=== PATIENT | female | born 1940 | race Two or more races ===

== ENCOUNTER 2017-10-09 17:03 | Inpatient (IN) | payer MEDICARE, OTHER ==
[~2017-10-09] VITALS: Ht 152.4 cm; Wt 53.5 kg
--- NOTE | 2017-10-09 17:30 | NUR ---
[id number] FROM HOME: FAILURE TO THRIVE, UNABLE TO CARE FOR SELF, SOB. HX OF HYPOXIA. ON O2 VIA NC. PT AAOX3. SEEN BY MD FOR EVAL. SAFETY AND COMFORT MEASURES PROVIDED. WILL MONITOR.
--- NOTE | 2017-10-09 18:20 | NUR ---
UNABLE TO ESTABLISH IV ACCESS- CHARGE NURSE MADE AWARE.
[2017-10-09] MEDS ORDERED: IV NS 0.9% 1,000 ML BAG IV ONE (18:30)
[2017-10-09 18:36] LABS: BASOPHILS # (AUTO) 0.1 /CMM (0.0-0.2); BASOPHILS % (AUTO) 1.1 % (0.0-2.0); EOSINOPHILS # (AUTO) 0.1 /CMM (0.0-0.7); EOSINOPHILS % (AUTO) 0.7 % (0.0-6.0); HEMATOCRIT 49 % (33-45); HEMOGLOBIN 15.1 g/dL (11.5-14.8); LYMPHOCYTES # (AUTO) 1.1 /CMM (0.8-4.8); LYMPHOCYTES % (AUTO) 10.4 % (20.0-44.0); MEAN CORPUSCULAR HEMOGLOBIN 26 PG (26.0-33.0); MEAN CORPUSCULAR HGB CONC 31 g/dl (31.0-36.0); MEAN CORPUSCULAR VOLUME 85 fL (82-100); MONOCYTES # (AUTO) 0.9 /CMM (0.1-1.30); MONOCYTES % (AUTO) 8.7 % (2.0-12.0); NEUTROPHILS # (AUTO) 8.2 /CMM (1.8-8.9); NEUTROPHILS % (AUTO) 79.1 % (43.0-81.0); PLATELET COUNT (AUTO) 202 /CMM (150-450); RDW COEFFICIENT OF VARIATION 15.8 (11.5-15.0); RED BLOOD CELL COUNT(AUTO) 5.72 MIL/uL (4.0-5.2); WHITE BLOOD COUNT (AUTO) 10.4 K/uL (4.3-11.0)
[2017-10-09 18:47] LABS: CALCIUM, SERUM 9.3 mg/dL (8.5-10.1); CARBON DIOXIDE 18 mmol/L (21-32); CHLORIDE 102 mmol/L (98-107); CREATININE 1.2 mg/dL (0.6-1.3); GLUCOSE 69 mg/dL (74-106); POTASSIUM 4.7 mmol/L (3.5-5.1); SODIUM SERUM 136 mmol/L (136-145); UREA NITROGEN, BLOOD 28 mg/dL (7-18)
[2017-10-09 18:52] LABS: ALANINE AMINOTRANSFERASE 21 U/L (12-78); ALBUMIN 3.1 g/dL (3.4-5.0); ALKALINE PHOSPHATASE 86 U/L (46-116); ASPARTATE AMINOTRANSFERASE 38 U/L (15-37); BILIRUBIN,TOTAL 0.2 mg/dL (0.2-1.0); TOTAL PROTEIN, SERUM 8.2 g/dL (6.4-8.2)
--- NOTE | 2017-10-09 19:00 | NUR ---
URINE SAMPLE OBTAINED.
--- NOTE | 2017-10-09 19:10 | NUR ---
PT REFUSES BLOOD DRAW/ IV INSERTION. CHARGE NURSE MADE AWARE. MADE AWARE.
[2017-10-09 19:11] LABS: TROPONIN I < 0.017 ng/mL (0.00-0.056)
[2017-10-09 19:50] LABS: APPEARANCE,URINE Clear (CLEAR); BILIRUBIN,URINE SMALL (NEGATIVE); BLOOD, URINE Negative Ery/uL (NEGATIVE); COLOR,URINE Yellow (YELLOW); KETONES,URINE 80 (NEGATIVE); LEUKOCYTE ESTERASE ,URINE Negative (NEGATIVE); NITRITE, URINE Negative (NEGATIVE); PH,URINE 5.5 (5.0-8.0); PROTEIN,URINE 30 mg/dl (NEGATIVE); UGLUCOSE Negative (NEGATIVE); UROBILINOGEN,URINE 0.2 EU/dL (0.2)
[2017-10-09 19:54] LABS: BACTERIA,URINE Many /HPF (None Seen); RBC,URINE 0-2 /HPF (0-2); SQUAMOUS EPITHELIAL CELL,UR Few /HPF (None Seen); WBC,URINE 0-2 /HPF (0-3)
--- NOTE | 2017-10-09 20:48 | NUR ---
311-1 [facility] BED
--- NOTE | 2017-10-09 21:00 | NUR ---
2ND CALL TO DR. HARRELL
--- NOTE | 2017-10-09 21:05 | NUR ---
REPORT GIVEN TO AL MUSTAFA FOR 311-1
--- NOTE | 2017-10-09 21:15 | NUR ---
3RD CALL TO DR. HARRELL. SERVICE TO KEANU TORREZ.
[2017-10-09] MEDS ORDERED: OSELTAMIVIR PHOSPHATE 75 MG CAPSULE PO SCH (22:00)
[2017-10-09] MEDS ORDERED: OSELTAMIVIR PHOSPHATE 75 MG CAPSULE ONE (22:08)
--- NOTE | 2017-10-09 22:20 | NUR ---
RN NOTES RECEIVED PT. FROM ER WITH DX. OF GENERALIZED WEAKNESS, A/OX3, SR ON TELE MONITOR HR-88, NO IV ACCESS WAITING FOR MIDLINE INSERTION, ADMISSION INSTRUCTION WAS GIVEN, CALL LIGHT WITHIN REACH, SIDERAILSUPX2 CONTINUE TO MONITOR
[2017-10-10 00:19] LABS: INR 0.93 (0.87-1.13); PROTHROMBIN TIME 9.7 SECS (9.5-12.7)
[2017-10-10] MEDS ORDERED: ONDANSETRON HCL/PF 4 MG/2 ML VIAL IVP PRN (00:30)
[2017-10-10] MEDS ORDERED: hydrALAZINE HCL 10 MG TABLET PO PRN (00:30)
[2017-10-10] MEDS ORDERED: ACETAMINOPHEN 325 MG TABLET PO PRN (00:30)
[2017-10-10] MEDS ORDERED: Z GUARD REMEDY 2 OZ OINT TP PRN (00:30)
[2017-10-10] MEDS: methylPREDNISolone SOD SUCC 40 MG/ML VIAL IV SCH ×4 (00:30→18:15)
[2017-10-10] MEDS ORDERED: CEFTRIAXONE 1 G in IV D5W 50 ML IV SCH (00:30)
[2017-10-10] MEDS ORDERED: LEVOFLOXACIN 750 MG /D5W 150ML 750 MG in PREMIX 1 EA IV SCH (01:00)
[2017-10-10] MEDS ORDERED: LEVOFLOXACIN (750 MG) 750 MG TABLET PO SCH (01:00)
[2017-10-10] MEDS ORDERED: LEVOFLOXACIN (750 MG) 750 MG TABLET PO ONE (01:00)
[2017-10-10] MEDS ORDERED: predniSONE 20 MG TABLET PO SCH (01:00)
--- NOTE | 2017-10-10 01:00 | NUR ---
RN NOTES LEVAQUIN IV AND SOLU MEDROL 40 MG IV WAS NOT GIVEN.. PT DOESN'T HAVE IV ACCESS, ELSI GALVAN-MARTINA MADE AWARE... [place] GALVAN ORDER PO X1 INSTEAD WHILE WAITING FOR MIDLINE INSERTION TOMORROW
[2017-10-10] MEDS ORDERED: ACETYLCYSTEINE 10% SOLN 400 MG/4 ML VIAL ONE (01:04)
[2017-10-10] MEDS ORDERED: ALBUTEROL FS 2.5 MG/0.5 ML VIAL.NEB ONE (01:04)
[2017-10-10] MEDS ORDERED: IPRATROPIUM NEB FS 0.5 MG/2.5 ML AMPUL.NEB ONE (01:04)
[2017-10-10] MEDS ORDERED: LEVOFLOXACIN (750 MG) 750 MG TABLET ONE (01:07)
[2017-10-10] MEDS: IPRATROPIUM NEB FS 0.5 MG/2.5 ML AMPUL.NEB NEB SCH ×4 (01:07→19:30)
[2017-10-10] MEDS: ACETYLCYSTEINE 10% SOLN 400 MG/4 ML VIAL NEB SCH ×4 (01:07→23:16)
[2017-10-10] MEDS: ALBUTEROL FS 2.5 MG/0.5 ML VIAL.NEB NEB SCH ×4 (01:07→19:30)
[2017-10-10] MEDS ORDERED: predniSONE 20 MG TABLET ONE (01:09)
[2017-10-10] MEDS ORDERED: HYDROCODONE/APAP 5/325MG 1 EACH TABLET ONE (01:09)
[2017-10-10] MEDS: HYDROCODONE/APAP 5/325MG 1 EACH TABLET PO PRN ×4 (01:29→23:14)
--- NOTE | 2017-10-10 01:29 | NUR ---
RN NOTES COMPLAINED OF BACK PAIN- NORCO 5/325MG PO GIVEN ORDERED, V/S STABLE
[2017-10-10 04:00] VITALS: BP 122/61
--- NOTE | 2017-10-10 06:34 | NUR ---
RN NOTES SLEEPING BUT AROUSABLE, DENIES PAIN, NO SOB, MORNING CARE RENDERED, CALL LIGHT WITHIN REACH, SIDERAILSUPX2 PT. NEEDS ATTENDED
[2017-10-10 07:08] LABS: BASOPHILS % (AUTO) 0.1 % (0.0-2.0); EOSINOPHILS % (AUTO) 0.3 % (0.0-6.0); HEMATOCRIT 40 % (33-45); HEMOGLOBIN 12.6 g/dL (11.5-14.8); LYMPHOCYTES # (AUTO) 0.5 /CMM (0.8-4.8); LYMPHOCYTES % (AUTO) 7.2 % (20.0-44.0); MEAN CORPUSCULAR HEMOGLOBIN 27 PG (26.0-33.0); MEAN CORPUSCULAR HGB CONC 32 g/dl (31.0-36.0); MEAN CORPUSCULAR VOLUME 85 fL (82-100); MONOCYTES % (AUTO) 0.3 % (2.0-12.0); NEUTROPHILS % (AUTO) 92.1 % (43.0-81.0); PLATELET COUNT (AUTO) 230 /CMM (150-450); RDW COEFFICIENT OF VARIATION 16.6 (11.5-15.0); RED BLOOD CELL COUNT(AUTO) 4.69 MIL/uL (4.0-5.2); WHITE BLOOD COUNT (AUTO) 7.6 K/uL (4.3-11.0)
[2017-10-10 07:11] LABS: MAGNESIUM 2.4 mg/dL (1.8-2.4); PHOSPHORUS 4.1 mg/dL (2.5-4.9)
[2017-10-10 08:00] VITALS: BP 106/56
--- NOTE | 2017-10-10 08:13 | NUR ---
CEMENT HANDLER OPENING NOTES. RECEIVED PT A&0X3, EASILY AWOKEN BUT DROWSY. TELE:SR. PT WITH O2 VIA NC AT 2L/PM, SAO2 96%, PT JUST RECEIVED RT, AUSCULTATED DIMINISHED IN LOWER LOBES. PT REPORTING NO PAIN AT THIS TIME. PT WITHOUT IVC, ENDORSED MD AWARE, CHARGE AWARE AND MIDLINE SCHEDULED. BED IN LOWEST LOCKED POSITION WITH HANDRAILSX2 AND CALL GODOY WITHIN REACH. PT BRIEFED ON TODAY'S POC, PT IS WITHOUT CONCERN OR COMPLAINT AT THIS TIME.
[2017-10-10] MEDS ORDERED: predniSONE 20 MG TABLET PO ONE (09:30)
--- NOTE | 2017-10-10 09:43 | NUR ---
PRINTED CIRCUIT BOARD PANELS DEVELOPER NOTES. PT WITHOUT IV ACCESS, AWAITING MIDLINE PLACEMENT. IV MEDS HELD, PO PREDNISONE GIVEN SANG MD TUCKER MA.
--- NOTE | 2017-10-10 11:02 | NUR ---
MS RN NOTES. D/C TELE PER .
[2017-10-10] MEDS: IV NS 0.9% 1,000 ML IV PRN (12:10)
[2017-10-10 16:00] VITALS: BP 122/65
--- NOTE | 2017-10-10 18:47 | NUR ---
MS RN CLOSING NOTES PT A&0X3 RESTING IN BED. PT WITH O2 VIA NC AT 2L/PM AND IS WITHOUT SOB AT THIS TIME. PT REPORTING ADEQUATE PAIN MANAGEMENT AT THIS TIME. PT WITH R UPPER ARM MIDLINE INTACT AND OPERATIONAL. BED IN LOWEST LOCKED POSITION WITH HANDRAILSX2 AND CALL GODOY WITHIN REACH. ALL DAY DAY NURSE DUTIES ATTENDED TO, PT IS WITHOUT CONCERN OR COMPLAINT AT THIS TIME. WILL ENDORSE TO NIGHT NURSE.
--- NOTE | 2017-10-10 19:10 | NUR ---
RN OPENING NOTES RECEIVED REPORT FROM AM RN. PATIENT A/A/O X3, ABLE TO MAKE NEEDS KNOWN. BREATHING EVEN & UNLABORED, ON O2 2L VIA NC. DENIES SOB OR DIFFICULTY BREATHING . PULSES PRESENT. RIGHT UPPER ARM MIDLINE INTACT & PATENT W/ DRESSING CDI & IVF NS @ 60 ML/HR. C/O SOME PAIN IN BILATERAL SHOULDERS, PAIN MED TO BE GIVEN. SAFETY MEASURES IN PLACE W/ SIDE RAILS UP, BED LOCKED & IN LOWEST POSITION & CALL LIGHT WITHIN REACH. WILL CONTINUE TO MONITOR.
[2017-10-10 20:00] VITALS: BP 126/67
[2017-10-10] MEDS: MAG HYDROX/AL HYDROX/SIMETH 30 ML UDC PO PRN (20:32)
[2017-10-10] MEDS: LEVOFLOXACIN 750 MG /D5W 150ML 750 MG in PREMIX 1 EA IV SCH (23:09)
[2017-10-11] MEDS: IPRATROPIUM NEB FS 0.5 MG/2.5 ML AMPUL.NEB NEB SCH ×4 (01:30→19:28)
[2017-10-11] MEDS: ALBUTEROL FS 2.5 MG/0.5 ML VIAL.NEB NEB SCH ×4 (01:30→19:28)
[2017-10-11] MEDS: ZOLPIDEM TARTRATE 5 MG TABLET PO PRN ×2 (02:06→20:03)
[2017-10-11 06:39] LABS: BASOPHILS % (AUTO) 0.1 % (0.0-2.0); EOSINOPHILS % (AUTO) 0.1 % (0.0-6.0); HEMATOCRIT 38 % (33-45); HEMOGLOBIN 12.2 g/dL (11.5-14.8); LYMPHOCYTES # (AUTO) 0.8 /CMM (0.8-4.8); LYMPHOCYTES % (AUTO) 14.1 % (20.0-44.0); MEAN CORPUSCULAR HEMOGLOBIN 27 PG (26.0-33.0); MEAN CORPUSCULAR HGB CONC 32 g/dl (31.0-36.0); MEAN CORPUSCULAR VOLUME 82 fL (82-100); MONOCYTES # (AUTO) 0.6 /CMM (0.1-1.30); MONOCYTES % (AUTO) 10.2 % (2.0-12.0); NEUTROPHILS # (AUTO) 4.1 /CMM (1.8-8.9); NEUTROPHILS % (AUTO) 75.5 % (43.0-81.0); PLATELET COUNT (AUTO) 229 /CMM (150-450); RDW COEFFICIENT OF VARIATION 15.3 (11.5-15.0); WHITE BLOOD COUNT (AUTO) 5.5 K/uL (4.3-11.0)
[2017-10-11] MEDS: IV NS 0.9% 1,000 ML IV PRN (06:44)
[2017-10-11 07:14] LABS: CALCIUM, SERUM 9.2 mg/dL (8.5-10.1); CARBON DIOXIDE 24 mmol/L (21-32); CHLORIDE 108 mmol/L (98-107); CREATININE 0.9 mg/dL (0.6-1.3); GLUCOSE 166 mg/dL (74-106); POTASSIUM 4.4 mmol/L (3.5-5.1); SODIUM SERUM 140 mmol/L (136-145); UREA NITROGEN, BLOOD 27 mg/dL (7-18)
--- NOTE | 2017-10-11 07:25 | NUR ---
RN OPENING NOTES RECEIVED PT. IN BED A&OX3. BREATHING UNLABORED AND EVENLY ON OXYGEN AT 2L/MIN VIA NASAL CANNULA. NO S/S OF ACUTE DISTRESS. IV ACCESS ON RIGHT UPPER ARM MIDLINE RUNNING IV FLUIDS AT 60 ML/HR. BED IS IN LOWEST AND LOCKED POSITION. 2 SIDE RAILS UP, AND INSTRUCTED PT. TO USE CALL LIGHT FOR ASSISTANCE. ALL NEEDS MET. WILL CONTINUE TO ASSESS AND MONITOR.
--- NOTE | 2017-10-11 07:25 | NUR ---
RN CLOSING NOTES PT. IN BED A&OX3. BREATHING UNLABORED AND EVENLY ON ROOM AIR. NO S/S OF ACUTE DISTRESS. IV ACCESS ON RIGHT UPPER ARM MIDLINE WITH IV FLUIDS RUNNING AT 60 ML/HR. PT. EVALUATION PERFORMED TODAY. BED IS IN LOWEST AND LOCKED POSITION. 2 SIDE RAILS UP, AND INSTRUCTED PT. TO USE CALL LIGHT FOR ASSISTANCE. ALL NEEDS MET. WILL ENDORSE REPORT TO NURSE. Addendum: 10/11/17 at 2006 by JAMIE GOLDSMITH RN TIME ERROR. CLOSING NOTE DOCUMENTED AT 1935.
[2017-10-11] MEDS: ACETYLCYSTEINE 10% SOLN 400 MG/4 ML VIAL NEB SCH ×2 (07:35→15:30)
[2017-10-11 08:00] VITALS: BP 133/66
[2017-10-11] MEDS: methylPREDNISolone SOD SUCC 40 MG/ML VIAL IV SCH ×3 (09:49→17:32)
[2017-10-11] MEDS: HYDROCODONE/APAP 5/325MG 1 EACH TABLET PO PRN ×3 (09:51→20:03)
[2017-10-11] MEDS: MAG HYDROX/AL HYDROX/SIMETH 30 ML UDC PO PRN (10:34)
[2017-10-11 16:00] VITALS: BP 136/68
--- NOTE | 2017-10-11 19:30 | NUR ---
RN OPENING NOTES PT RESTING IN BED. NO APPARENT S/S OF PAIN, DISTRESS OR SOB NOTED. PT HAS A R UA MIDLINE RUNNING NS @60ML/HR. PT TOLERATING FLUIDS WELL. SAFETY PRECAUTIONS IN PLACE. BED IN LOW, LOCKED POSITION, X2 SIDERAILS UP. CALL LIGHT WITHIN REACH. WILL CONTINUE TO MONITOR.
[2017-10-11 20:00] VITALS: BP 131/69
--- NOTE | 2017-10-11 22:30 | NUR ---
PT MOVED FROM ROOM 309-1 TO 321-1. ALL PT BELONGINGS BROUGHT WITH HER.
[2017-10-12] MEDS: ACETYLCYSTEINE 10% SOLN 400 MG/4 ML VIAL NEB SCH ×4 (01:00→23:30)
[2017-10-12] MEDS: ALBUTEROL FS 2.5 MG/0.5 ML VIAL.NEB NEB SCH ×4 (01:02→19:30)
[2017-10-12] MEDS: IPRATROPIUM NEB FS 0.5 MG/2.5 ML AMPUL.NEB NEB SCH ×4 (01:02→19:30)
[2017-10-12] MEDS: IV NS 0.9% 1,000 ML IV PRN ×2 (01:33→17:45)
[2017-10-12] MEDS: HYDROCODONE/APAP 5/325MG 1 EACH TABLET PO PRN ×3 (04:22→17:29)
--- NOTE | 2017-10-12 07:33 | NUR ---
MS RN OPENING NOTES RECEIVED PT AWAKE IN BED IN NO ACUTE SIGNS OF DISTRESS. A/O X 3, DENIES PAIN OR DISCOMFORTS AT THIS TIME. ON VIS N/C @ 2LPM, RESPIRATIONS EVEN WITH NO SOB NOTED. PATY MIDLINE INTACT AND PATENT, IVF OF NS @ 60ML/HR INFUSING WELL, NO SIGNS OF INFILTRATION NOTED. HOB ELEVATED. BED LOCKED AND IN LOWEST POSITION WITH SIDE-RAILS UP X2. CALL LIGHT WITHIN EASY TO REACH. WILL CONTINUE TO MONITOR
[2017-10-12 09:00] VITALS: BP 150/67
[2017-10-12] MEDS: methylPREDNISolone SOD SUCC 40 MG/ML VIAL IV SCH ×2 (09:10→16:14)
[2017-10-12 11:58] LABS: CALCIUM, SERUM 8.8 mg/dL (8.5-10.1); CARBON DIOXIDE 25 mmol/L (21-32); CHLORIDE 111 mmol/L (98-107); CREATININE 0.8 mg/dL (0.6-1.3); GLUCOSE 187 mg/dL (74-106); POTASSIUM 4.6 mmol/L (3.5-5.1); SODIUM SERUM 144 mmol/L (136-145); UREA NITROGEN, BLOOD 30 mg/dL (7-18)
[2017-10-12 16:00] VITALS: BP 150/62
[2017-10-12] MEDS: MAG HYDROX/AL HYDROX/SIMETH 30 ML UDC PO PRN ×2 (16:15→21:32)
--- NOTE | 2017-10-12 18:45 | NUR ---
MS RN CLOSING NOTES PT AWAKE AND RESTING @ MODERATE HIGH BACKREST IN BED. A/O X 3 AND ABLE TO VERBALIZED NEEDS AND CONCERNS. NO SIGNIFICANT CHANGES NOTED THROUGHOUT THE DAY. ON 02 VIS N/C @ 2LPM, RESPIRATIONS EVEN WITH NO SOB NOTED. PATY MIDLINE INTACT AND PATENT, IVF OF NS @ 60ML/HR INFUSING WELL, NO SIGNS OF INFILTRATION NOTED. KEPT HOB ELEVATED. BED LOCKED AND IN LOWEST POSITION WITH SIDE-RAILS UP X2. CALL LIGHT WITHIN EASY TO REACH. ALL NEEDS AND CARE ATTENDED WELL. WILL ENDORSED TO CHRISTIAN SCIENCE PRACTITIONER NURSE FOR JACKSON.
--- NOTE | 2017-10-12 19:15 | NUR ---
MS/SMOKE ROOM OPERATOR; RECEIVED PT'S REPORTS FROM THE DAY SHIFT RN FOR CONTINUITY OF CARE. AT THIS TIME PT IN BED AWAKE, ALERT AND ORIENTED X 3. DENIES PAIN. IVF ON PROGRESS ON PATY MIDLINE. WITH OE 2L NC ON. BED ON LOWER POSITION AND LOCKED FOR SAFETY. SIDE RAILS ARE UP FOR SAFETY. CALL LIGHT WITHIN REACH.
[2017-10-12 20:00] VITALS: BP 147/60
--- NOTE | 2017-10-12 20:50 | NUR ---
MS/PARTS SALESMAN; PT ASKED FOR SLEEPING PILL AMBIEN 5 MG PO HS PRN GIVEN ORDERED.
[2017-10-12] MEDS: ZOLPIDEM TARTRATE 5 MG TABLET PO PRN (20:52)
--- NOTE | 2017-10-12 21:30 | NUR ---
MS/LICENSED MASTER SOCIAL WORKER; PT ASKED FOR MAALOX FOR C/O ABDOMINAL UPSET. MAALOX 30 ML Q6 PRN GIVEN.
[2017-10-12] MEDS: LEVOFLOXACIN 750 MG /D5W 150ML 750 MG in PREMIX 1 EA IV SCH (22:37)
--- NOTE | 2017-10-13 00:11 | NUR ---
Breathing tx mucomist 10% 4ML not given because medication was not available.
--- NOTE | 2017-10-13 01:45 | NUR ---
MS/ELECTRICAL & INSTRUMENTATION SUPERVISOR; PT C/O SOB . PT HAS BEEN REFUSING O2 AT THE BEGINNING OF BANQUET COORDINATOR. SO O2 3L NC RESUMED AND HOB AT 45 DEGREES AND RT GAVE BREATHING TREATMENT .
[2017-10-13] MEDS: ALBUTEROL FS 2.5 MG/0.5 ML VIAL.NEB NEB SCH ×4 (02:01→19:30)
[2017-10-13] MEDS: IPRATROPIUM NEB FS 0.5 MG/2.5 ML AMPUL.NEB NEB SCH ×4 (02:03→19:30)
--- NOTE | 2017-10-13 03:00 | NUR ---
MS/CONCRETE STONE FABRICATOR; TYLENOL 650 MG PO Q6 PRN GIVEN FOR C/O ARTHRITIS PAIN TO HER BACK, SHOULDERS AND BOTH ARMS.
--- NOTE | 2017-10-13 07:00 | NUR ---
MS/WIND TUNNEL MECHANIC; SLEPT AT GOOD INTERVALS. IVF ON PROGRESS. RESTING AT THIS TIME. WILL ENDORSE TO THE DAY SHIFT NURSE.
--- NOTE | 2017-10-13 07:24 | NUR ---
MS RN OPENING NOTES RECEIVED PT ASLEEP IN BED, EASILY AWAKENS. A/O X 3. ABLE TO MAKE NEEDS KNOWN, DENIES PAIN OR DISCOMFORTS AT THIS TIME. ON SUPPLEMENTAL 02 VIA N/C @ 2LPM, RESPIRATIONS EVEN WITH NO SOB NOTED. PATY MIDLINE INTACT AND PATENT, IVF OF NS @ 60ML/HR INFUSING WELL. HOB ELEVATED. BED LOCKED AND IN LOWEST POSITION WITH SIDE-RAILS UP X2. CALL LIGHT WITHIN EASY TO REACH. WILL CONTINUE TO MONITOR
[2017-10-13] MEDS: ACETYLCYSTEINE 10% SOLN 400 MG/4 ML VIAL NEB SCH ×2 (07:35→15:30)
[2017-10-13 08:00] VITALS: BP 171/85
[2017-10-13] MEDS: HYDROCODONE/APAP 5/325MG 1 EACH TABLET PO PRN ×4 (08:46→21:55)
[2017-10-13] MEDS: methylPREDNISolone SOD SUCC 40 MG/ML VIAL IV SCH ×4 (08:46→21:00)
[2017-10-13] MEDS: MAG HYDROX/AL HYDROX/SIMETH 30 ML UDC PO PRN ×2 (09:06→16:53)
[2017-10-13 16:00] VITALS: BP 130/54
[2017-10-13] MEDS: IV NS 0.9% 1,000 ML IV PRN (18:47)
--- NOTE | 2017-10-13 18:48 | NUR ---
MS RN CLOSING NOTES PT AWAKE AND RESTING AT MODERATE HIGH BACKREST IN BED. A/O X 3. ABLE TO MAKE NEEDS KNOWN. NO SIGNIFICANT CHANGES NOTED THROUGHOUT THE DAY. ON SUPPLEMENTAL 02 VIA N/C @ 2LPM, RESPIRATIONS EVEN WITH NO SOB NOTED. PATY MIDLINE INTACT AND PATENT, IVF OF NS @ 60ML/HR INFUSING WELL. KEPT HOB ELEVATED. BED LOCKED AND IN LOWEST POSITION WITH SIDE-RAILS UP X2. CALL LIGHT WITHIN EASY TO REACH. ALL NEEDS AND CARE ATTENDED WELL. WILL ENDORSED TO PHOTOGEOLOGIST NURSE FOR JACKSON.
--- NOTE | 2017-10-13 19:30 | NUR ---
RN NOTES RECEIVED PATIENT IN BED AWAKE, AO X 3, ABLE TO MAKE NEEDS KNOWN. NO ACUTE DISTRESS NOTED. DENIES ANY PAIN AT THIS TIME. IV SITE PATENT, INTACT; IVF INFUSING ORDERED. SAFETY REMINDERS GIVEN. ON LOW BED WITH BILATERAL UPPER SIDE RAILS UP. CALL GODOY WITHIN EASY REACH. WILL CONTINUE TO MONITOR.
[2017-10-13 19:56] LABS: BASOPHILS % (AUTO) 0.4 % (0.0-2.0); EOSINOPHILS % (AUTO) 0.2 % (0.0-6.0); HEMATOCRIT 37 % (33-45); HEMOGLOBIN 11.9 g/dL (11.5-14.8); LYMPHOCYTES # (AUTO) 0.7 /CMM (0.8-4.8); LYMPHOCYTES % (AUTO) 14.9 % (20.0-44.0); MEAN CORPUSCULAR HEMOGLOBIN 26 PG (26.0-33.0); MEAN CORPUSCULAR HGB CONC 32 g/dl (31.0-36.0); MEAN CORPUSCULAR VOLUME 82 fL (82-100); MONOCYTES # (AUTO) 0.3 /CMM (0.1-1.30); NEUTROPHILS # (AUTO) 3.8 /CMM (1.8-8.9); NEUTROPHILS % (AUTO) 77.5 % (43.0-81.0); PLATELET COUNT (AUTO) 191 /CMM (150-450); RDW COEFFICIENT OF VARIATION 15.6 (11.5-15.0); RED BLOOD CELL COUNT(AUTO) 4.52 MIL/uL (4.0-5.2); WHITE BLOOD COUNT (AUTO) 4.8 K/uL (4.3-11.0)
[2017-10-13 20:00] VITALS: BP 147/60
[2017-10-13 20:13] VITALS: BP 147/60
[2017-10-13 20:14] LABS: CALCIUM, SERUM 8.5 mg/dL (8.5-10.1); CARBON DIOXIDE 27 mmol/L (21-32); CHLORIDE 107 mmol/L (98-107); CREATININE 0.7 mg/dL (0.6-1.3); GLUCOSE 213 mg/dL (74-106); POTASSIUM 4.2 mmol/L (3.5-5.1); SODIUM SERUM 142 mmol/L (136-145); UREA NITROGEN, BLOOD 23 mg/dL (7-18)
[2017-10-13] MEDS: ZOLPIDEM TARTRATE 5 MG TABLET PO PRN (21:01)
[2017-10-14] MEDS: ALBUTEROL FS 2.5 MG/0.5 ML VIAL.NEB NEB SCH ×4 (01:30→19:32)
[2017-10-14] MEDS: IPRATROPIUM NEB FS 0.5 MG/2.5 ML AMPUL.NEB NEB SCH ×4 (01:30→19:32)
[2017-10-14] MEDS: ACETYLCYSTEINE 10% SOLN 400 MG/4 ML VIAL NEB SCH ×4 (01:34→22:17)
[2017-10-14 04:00] VITALS: BP 175/79
--- NOTE | 2017-10-14 06:20 | NUR ---
RN NOTES PATIENT IN BED ASLEEP, EASILY AROUSABLE. RESPIRATIONS EVEN. NO SIGNS OF PAIN NOTED. DUE MEDS GIVEN WITH NO ASE NOTED. NEEDS ATTENDED. KEPT CLEAN AND DRY. SAFETY PRECAUTIONS AND COMFORT MEASURES IN PLACE. FAMILY AT BEDSIDE. WILL GIVE REPORT TO DAY SHIFT FOR CONTINUITY OF CARE. Addendum: 10/14/17 at 0623 by RUMA SAHNI RN FAMILY NOT AT BEDSIDE
--- NOTE | 2017-10-14 07:19 | NUR ---
MS RN OPENING NOTES RECEIVED PT COMFORTABLY ASLEEP IN BED, EASILY AROUSABLE. HOB ELEVATED. A/O X 3. VERBALLY RESPONSIVE, DENIES PAIN OR DISCOMFORTS AT THIS TIME. ON 02 VIA N/C @ 2LPM, RESPIRATIONS EVEN WITH NO SOB NOTED. MIDLINE ON PATY INTACT AND PATENT WITH IVF OF NS @ 60ML/HR INFUSING WELL. BED LOCKED AND IN LOWEST POSITION WITH SIDE-RAILS UP X2. CALL LIGHT WITHIN EASY TO REACH. WILL CONTINUE TO MONITOR
[2017-10-14 08:00] VITALS: BP 131/59
[2017-10-14] MEDS: methylPREDNISolone SOD SUCC 40 MG/ML VIAL IV SCH ×4 (08:26→21:43)
[2017-10-14] MEDS: HYDROCODONE/APAP 5/325MG 1 EACH TABLET PO PRN ×3 (08:31→18:58)
[2017-10-14 08:48] LABS: BASOPHILS # (AUTO) 0.1 /CMM (0.0-0.2); BASOPHILS % (AUTO) 1.1 % (0.0-2.0); EOSINOPHILS % (AUTO) 0.1 % (0.0-6.0); HEMATOCRIT 39 % (33-45); HEMOGLOBIN 12.5 g/dL (11.5-14.8); LYMPHOCYTES # (AUTO) 1.1 /CMM (0.8-4.8); MEAN CORPUSCULAR HEMOGLOBIN 27 PG (26.0-33.0); MEAN CORPUSCULAR HGB CONC 33 g/dl (31.0-36.0); MEAN CORPUSCULAR VOLUME 82 fL (82-100); MONOCYTES # (AUTO) 0.6 /CMM (0.1-1.30); MONOCYTES % (AUTO) 11.1 % (2.0-12.0); NEUTROPHILS # (AUTO) 3.4 /CMM (1.8-8.9); NEUTROPHILS % (AUTO) 66.7 % (43.0-81.0); PLATELET COUNT (AUTO) 208 /CMM (150-450); RDW COEFFICIENT OF VARIATION 15.6 (11.5-15.0); WHITE BLOOD COUNT (AUTO) 5.2 K/uL (4.3-11.0)
[2017-10-14 09:16] LABS: CALCIUM, SERUM 8.6 mg/dL (8.5-10.1); CARBON DIOXIDE 28 mmol/L (21-32); CHLORIDE 107 mmol/L (98-107); CREATININE 0.7 mg/dL (0.6-1.3); GLUCOSE 149 mg/dL (74-106); SODIUM SERUM 140 mmol/L (136-145); UREA NITROGEN, BLOOD 22 mg/dL (7-18)
[2017-10-14] MEDS: MAG HYDROX/AL HYDROX/SIMETH 30 ML UDC PO PRN ×2 (14:56→22:26)
[2017-10-14] MEDS: IV NS 0.9% 1,000 ML IV PRN (14:58)
[2017-10-14 16:00] VITALS: BP 128/61
--- NOTE | 2017-10-14 18:36 | NUR ---
MS RN CLOSING NOTES PT AWAKE AND RESTING COMFORTABLY IN BED. HOB ELEVATED. A/O X 3. VERBALLY RESPONSIVE. ON SUPPLEMENTAL 02 VIA N/C @ 2LPM, BREATHING EVEN WITH NO SOB NOTED. PATY MIDLINE INTACT AND PATENT, IVF OF NS @ 40ML/HR INFUSING WELL. KEPT HOB ELEVATED. BED LOCKED AND IN LOWEST POSITION WITH SIDE-RAILS UP X2. CALL LIGHT WITHIN EASY TO REACH. NO SIGNIFICANT CHANGES NOTED THROUGHOUT THE DAY. ALL NEEDS AND CARE ATTENDED WELL. WILL ENDORSED TO RELIEF DRILLER NURSE FOR JACKSON.
--- NOTE | 2017-10-14 19:20 | NUR ---
MS/SURVEY METHODOLOGIST; RECEIVED PT IN BED AWAKE, ALERT AND VERBALLY RESPONSIVE. BREATHING NON LABORED. IVF ON PROGRESS. BED LOWER POSITION AND LOCKED FOR SAFETY. SIDE RAILS ARE UP FOR SAFETY. CALL LIGHT WITHIN REACH. WILL CONTINUE TO MONITOR.
[2017-10-14 20:58] VITALS: BP 151/75
--- NOTE | 2017-10-14 22:25 | NUR ---
MS/LAMINATION ASSEMBLER; C/O ABDOMINAL UPSET MAALOX 30 ML PO Q6 PRN GIVEN.
--- NOTE | 2017-10-14 22:30 | NUR ---
MS/LIBRARY CLERK; AMBIEN 5 MG PO GIVEN ORDERED . Addendum: 10/15/17 at 0530 by DAVONTE MALLORY LIBRARY CLERK DISREGARD ABOVE NOTES ERROR. WRONG TIME.
--- NOTE | 2017-10-14 23:10 | NUR ---
MS/TELEPHONE ANSWERING SERVICE OPERATOR; PLACED A CALL TO ELSI GALVAN FOR PT WANTS SLEEPING PILL WITH ORDER AMBIEN 5 MG PO HS PRN , CARRIED OUT ORDER.
[2017-10-14] MEDS ORDERED: ZOLPIDEM TARTRATE 5 MG TABLET ONE (23:26)
[2017-10-14] MEDS: ZOLPIDEM TARTRATE 5 MG TABLET PO PRN (23:30)
--- NOTE | 2017-10-14 23:30 | NUR ---
MS/STRUCTURAL ENGINEERING TECHNICIAN; AMBIEN 5 MG PO HS PRN GIVEN NEW ORDER.
[2017-10-15] MEDS: ALBUTEROL FS 2.5 MG/0.5 ML VIAL.NEB NEB SCH ×4 (01:30→20:26)
[2017-10-15] MEDS: IPRATROPIUM NEB FS 0.5 MG/2.5 ML AMPUL.NEB NEB SCH ×4 (01:30→20:26)
[2017-10-15] MEDS: LEVOFLOXACIN 750 MG /D5W 150ML 750 MG in PREMIX 1 EA IV SCH (03:38)
--- NOTE | 2017-10-15 07:00 | NUR ---
MS/PUMP HOUSE OPERATOR; NORCO 5-325 MG PO Q4 HOURS PRN GIVEN FOR C/O GEN. PAIN. IVF ON PROGRESS. SLEPT AT GOOD INTERVAL. WILL ENDORSE TO THE DAY SHIFT NURSE FOR CONTINUITY OF CARE.
[2017-10-15] MEDS: HYDROCODONE/APAP 5/325MG 1 EACH TABLET PO PRN ×3 (07:02→21:39)
[2017-10-15] MEDS: ACETYLCYSTEINE 10% SOLN 400 MG/4 ML VIAL NEB SCH ×3 (07:35→23:30)
[2017-10-15 08:00] VITALS: BP 162/79
[2017-10-15] MEDS: MAG HYDROX/AL HYDROX/SIMETH 30 ML UDC PO PRN (09:50)
[2017-10-15] MEDS: methylPREDNISolone SOD SUCC 40 MG/ML VIAL IV SCH ×3 (10:21→17:39)
--- NOTE | 2017-10-15 13:47 | NUR ---
PATIENT SITTING UP IN CHAIR TOLERATING. NOT ON O2 AT THIS POINT AND TIME. SATURATING AT 92% IN ROOM AIR. NOTED NEW ORDER FOR Dee LAO PER INSTRUCTIONS GIVEN MY Denice.
[2017-10-15 14:16] LABS: ABG BASE EXCESS 1.6 mmol/L; ABG PCO2 31.3 mmHg (35.0-45.0); ABG PH 7.503 (7.350-7.450); ABG PO2 72.1 mmHg (75.0-100.0); AaDO2 40.2 mmHg; MetHb 0.4 % (0.0-1.5); O2Hb 94.6 % (94.0-97.0); SITE, ABG Right Brachial; VENT MODE, BG ROOM AIR
[2017-10-15 16:00] VITALS: BP 142/77
--- NOTE | 2017-10-15 16:58 | NUR ---
Patient reinforcement on compliance of treatment. Patient is anxious, restless, per family at bedside this is her base line. Made patient aware MD would like patient to titrate off oxygen but patient wants to go home. Noted o2 sat at 92% on R.A. Per P.A. Attempt RA o2 sat and if tolerated order an ABG. ABG order carried out. Continue to monitor. Call light with in reach. Patient verbalizes understanding of instructionsm but still wants to go home.
[2017-10-15 20:00] VITALS: BP 151/78
--- NOTE | 2017-10-15 20:00 | NUR ---
MS FLORICULTURE TEACHER INITIAL NOTES SEEN PT IN BED AWAKE AND ALERT JUST DONE EATING HER DINNER, ALMOST 50% ON HER FOOD THAT SHE FINISHED. NO ASPIRATION NOTED. BREATHING EVEN AND UNLABORED, NOT IN ANY ACUTE DISTRESS NOTED. IVF NS AT 40ML/HR STILL INFUSING. AWARE HOW TO USED THE CALL LIGHT. ONLY ENCOURAGE HER TO USE IT IF SHE NEEDS SOME HELPED OR NEED THE NURSE. KEPT HER WARM AND COMFORTABLE AT ALL TIMES. PLACE CALL LIGHT AT REACH, WILL CONTINUE TO MONITOR.
[2017-10-15 21:00] VITALS: BP_SYST 119; BP_SYST 151; BP_DIAS 60; BP_DIAS 78
[2017-10-15] MEDS: ZOLPIDEM TARTRATE 5 MG TABLET PO PRN (21:39)
--- NOTE | 2017-10-15 21:40 | NUR ---
ADDICTION NURSE NOTES NORCO TABLET GIVEN PER PT REQUESTED FOR HER GENERALIZED PAIN SPECIALLY HER LOWER BACK. TRISTAN ALSO GIEVN WELL. VITAL SIGNS STABLE. PT AWARE OF HER SAFETY PRECAUTION . BED ALARM SET AND SIDE RAILS SET . WILL RE- ASSESS LATER.
--- NOTE | 2017-10-15 23:00 | NUR ---
MAP PLOTTER NOTES PT SLEEPING COMFORTABLY IN BED WITHOUT ANY ACUTE DISTRESS NOTED. RESPIRATION EVEN AND UNLABORED. KEPT HER WARM AND SAFE AT ALL TIMES. WILL CONTINUE TO MONITOR. PLACE CALL LIGHT AT REACH.
[2017-10-16] MEDS: ALBUTEROL FS 2.5 MG/0.5 ML VIAL.NEB NEB SCH ×3 (01:30→13:34)
[2017-10-16] MEDS: IPRATROPIUM NEB FS 0.5 MG/2.5 ML AMPUL.NEB NEB SCH ×3 (01:30→13:34)
--- NOTE | 2017-10-16 07:35 | NUR ---
RN OPENING NOTES RECEIVED PATIENT RESTING COMFORTABLY IN BED. AOX3. NO ACUTE DISTRESS. RESPIRATIONS EVEN AND UNLABORED. DENIES ANY SOB, CP. COMPLAINING OF MILD PAIN IN THE SHOULDERS, NECK AND LOWER BACK. IV PATENT AND INTACT. NS RUNNING AT 40ML/HR. BED LOCKED IN THE LOWEST POSITION WITH SIDERAILS X2. CALL LIGHT WITHIN REACH. WILL CONTINUE TO MONITOR, ASSESS AND EDUCATE PATIENT THROUHGOUT SHIFT.
--- NOTE | 2017-10-16 07:36 | NUR ---
MS APPLICATION INTEGRATION SPECIALIST CLOSINGNOTES PT SLEEP WELL AFTER AMBIEN GIVEN LAST NIGHT. STABLE SAUL THE NIGHT .NO SIGNS OF ANY ACUTE DISTRESS NOTED. KEPT HER WARM AND COMFORTABLE AT ALL TIMES. ENDORSE TO AM NURSE FOR CONTINUITY OF CARE. BED ALARM SET FOR PT SAFETY. PLACE CALL LIGHT AT REACH.
[2017-10-16 08:00] VITALS: BP 133/77
[2017-10-16] MEDS: ACETYLCYSTEINE 10% SOLN 400 MG/4 ML VIAL NEB SCH ×2 (08:48→16:30)
[2017-10-16] MEDS: HYDROCODONE/APAP 5/325MG 1 EACH TABLET PO PRN ×2 (08:59→15:39)
[2017-10-16] MEDS: methylPREDNISolone SOD SUCC 40 MG/ML VIAL IV SCH (08:59)
[2017-10-16] MEDS ORDERED: predniSONE 10 MG TABLET PO SCH (11:00)
[2017-10-16] MEDS ORDERED: PRED10TA PO ×2 (11:51)
[2017-10-16] MEDS ORDERED: PRED20TA PO (11:51)
[2017-10-16] MEDS ORDERED: BOOST PLUS FOOD-VANILLA 237 ML BOX PO SCH (13:00)
--- NOTE | 2017-10-16 15:15 | NUR ---
RN CLOSING NOTES PATIENT DISCHARGED IN STABLE CONDITION HOME. PATIENT VERBALIZED UNDERSTANDING OF ALL DISCHARGE INSTRUCTIONS. ALL EXITCARE PROVIDED, ACKNOWLEDGED AND SIGNED BY PATIENT. ALL BELONGS ACCOUNTED FOR. ALL WOUNDS DOCUMENTED. MIDLINE REMOVED. PATIENT TOLERATED WELL. PATIENT TO HAVE PRESCRIPTION TO CONTINUE MEDICATIONS. ALL NEEDS MET. ALL MEDS GIVEN NEEDED.
[2017-10-17] MEDS ORDERED: MIRT15TA PO (08:13)
[2017-10-17] MEDS ORDERED: ALEN70TA3 PO (08:13)
[2017-10-17] MEDS ORDERED: FLUO40CA8 PO (08:13)
[2017-10-17] MEDS ORDERED: ESTR0.3T3 PO (08:13)
[2017-10-17] MEDS ORDERED: VALS40TA4 PO (08:13)
[2017-10-17] MEDS ORDERED: BUDE10.22 IH (08:13)
[2017-10-17] MEDS ORDERED: GABA-534 PO (08:13)
[2017-10-17] MEDS ORDERED: ROSU20TA PO (08:13)
[2017-10-20] MEDS ORDERED: GUAI-877 PO (13:18)
[2017-10-20] MEDS ORDERED: LEVO750T21 GT (13:18)
[2017-10-20] MEDS ORDERED: ALBU2.5V13 NEB (13:18)
[2017-10-20] MEDS ORDERED: IPRA0.2S9 NEB (13:18)
== END 2017-10-16 16:00 | disposition home health service (06) | DRG 682 ==
LOC: ER 17:03 → TELE 21:19 → MED 10-10 10:29
PROVIDERS: ADMIT Nurse Practitioner Acute Care; ATTEND Nurse Practitioner Acute Care
PROC: 05H533Z Insertion of Infusion Device into Right Subclavian Vein, Percutaneous Approach (ICD-10-PCS; principal; 2017-10-10)
PROC: B546ZZA Ultrasonography of Right Subclavian Vein, Guidance (ICD-10-PCS; 2017-10-10)
DX: N17.0 Acute kidney failure with tubular necrosis (principal); J18.9 Pneumonia, unspecified organism; J96.01 Acute respiratory failure with hypoxia; J44.1 Chronic obstructive pulmonary disease with (acute) exacerbation; J44.0 Chronic obstructive pulmonary disease with (acute) lower respiratory infection; E44.1 Mild protein-calorie malnutrition; Z90.710 Acquired absence of both cervix and uterus; Z86.73 Personal history of transient ischemic attack (TIA), and cerebral infarction without residual deficits; R62.7 Adult failure to thrive; M19.90 Unspecified osteoarthritis, unspecified site; I10 Essential (primary) hypertension; E86.0 Dehydration; Z88.0 Allergy status to penicillin; Z88.2 Allergy status to sulfonamides; F17.200 Nicotine dependence, unspecified, uncomplicated
CPT/HCPCS: 36415; 36569; 36600; 70220-TC; 71010-TC; 71045; 80048-TC; 80061-TC; 80076-TC; 81000-TC; 82803-TC; 83605-TC; 83735-TC; 84100-TC; 84484-TC; 85025-TC; 85730-TC; 87040-TC; 87081-TC; 87086-TC; 87400; 94799-TC; 97116-TC; 97530-TC; A4216; A4606; J0696; J1956; J2920; J7030; J7060; Z7610

== ENCOUNTER 2017-10-17 07:23 | Inpatient (IN) | payer MEDICARE, OTHER ==
[~2017-10-17] VITALS: Ht 165.1 cm; Wt 56.7 kg
[~2017-10-17 07:23] MED LIST: PRED10TA PO; PRED20TA PO
[2017-10-17] MEDS ORDERED: ALBUTEROL FS 2.5 MG/3 ML VIAL.NEB CONTNEB ONE (07:30)
[2017-10-17] MEDS ORDERED: IPRATROPIUM NEB FS 0.5 MG/2.5 ML AMPUL.NEB NEB ONE (07:30)
[2017-10-17] MEDS ORDERED: IV NS 0.9% 1,000 ML BAG IV ONE ×3 (07:30→13:00)
[2017-10-17] MEDS ORDERED: methylPREDNISolone SOD SUCC 125 MG/2ML VIAL IV ONE (07:30)
--- NOTE | 2017-10-17 07:30 | NUR ---
AAOX3, [id number] FROM HOME: SOB. TACHYPNEIC. SKIN IS WARM AND DRY. PLACED ON MONITOR. WILL CONTINUOUSLY MONITOR THE PATIENT. DR CHAUDHARI AT FOR EVAL.
[2017-10-17] MEDS ORDERED: methylPREDNISolone SOD SUCC 125 MG/2ML VIAL ONE (07:33)
--- NOTE | 2017-10-17 07:35 | NUR ---
XRAY IN PROGRESS AT BS
[2017-10-17] MEDS ORDERED: ALBUTEROL FS 2.5 MG/3 ML VIAL.NEB ONE (07:36)
[2017-10-17] MEDS ORDERED: IPRATROPIUM NEB FS 0.5 MG/2.5 ML AMPUL.NEB ONE (07:37)
[2017-10-17 07:51] VITALS: BP 140/104
--- NOTE | 2017-10-17 07:56 | NUR ---
PATIENT PLACED ON BIPAP PER MD ORDER. BIPAP PLUGGED IN RED OUTLETS. ALARMS SET AND AUDIBLE. BVM AT BEDSIDE. Addendum: 10/17/17 at 0757 by LOLITA STAHL RT Amended: Links added.
[2017-10-17] MEDS ORDERED: VALS40TA4 PO (08:13)
[2017-10-17] MEDS ORDERED: BUDE10.22 IH (08:13)
[2017-10-17] MEDS ORDERED: ESTR0.3T3 PO (08:13)
[2017-10-17] MEDS ORDERED: GABA-534 PO (08:13)
[2017-10-17] MEDS ORDERED: FLUO40CA8 PO (08:13)
[2017-10-17] MEDS ORDERED: MIRT15TA PO (08:13)
[2017-10-17] MEDS ORDERED: ALEN70TA3 PO (08:13)
[2017-10-17] MEDS ORDERED: ROSU20TA PO (08:13)
[2017-10-17 08:28] LABS: ABG BASE EXCESS 4.6 mmol/L; ABG OXYGEN SATURATION 99.2 % (92.0-98.5); ABG PH 7.472 (7.350-7.450); ABG PO2 266.6 mmHg (75.0-100.0); COHb 0.7 % (0.5-1.5); MetHb 0.4 % (0.0-1.5); O2Hb 98.1 % (94.0-97.0); SITE, ABG Left Brachial; VENT MODE, BG BiPAP 15/5 14 40%
--- NOTE | 2017-10-17 08:37 | NUR ---
CURRENT BIPAP SETTINGS: 15/5, AC=14, FIO2=40%.
[2017-10-17 09:41] LABS: BASOPHILS # (AUTO) 0.2 /CMM (0.0-0.2); EOSINOPHILS % (AUTO) 0.1 % (0.0-6.0); HEMATOCRIT 37 % (33-45); HEMOGLOBIN 12.3 g/dL (11.5-14.8); MEAN CORPUSCULAR HEMOGLOBIN 27 PG (26.0-33.0); MEAN CORPUSCULAR HGB CONC 33 g/dl (31.0-36.0); MEAN CORPUSCULAR VOLUME 82 fL (82-100); MONOCYTES # (AUTO) 1.3 /CMM (0.1-1.30); MONOCYTES % (AUTO) 8.1 % (2.0-12.0); NEUTROPHILS # (AUTO) 13.8 /CMM (1.8-8.9); NEUTROPHILS % (AUTO) 84.8 % (43.0-81.0); PLATELET COUNT (AUTO) 210 /CMM (150-450); RDW COEFFICIENT OF VARIATION 15.6 (11.5-15.0); RED BLOOD CELL COUNT(AUTO) 4.49 MIL/uL (4.0-5.2); WHITE BLOOD COUNT (AUTO) 16.3 K/uL (4.3-11.0)
[2017-10-17 09:58] LABS: CALCIUM, SERUM 8.2 mg/dL (8.5-10.1); CARBON DIOXIDE 26 mmol/L (21-32); CHLORIDE 109 mmol/L (98-107); CREATININE 0.8 mg/dL (0.6-1.3); GLUCOSE 163 mg/dL (74-106); POTASSIUM 3.3 mmol/L (3.5-5.1); SODIUM SERUM 143 mmol/L (136-145); UREA NITROGEN, BLOOD 23 mg/dL (7-18)
[2017-10-17] MEDS ORDERED: LEVOFLOXACIN 750 MG /D5W 150ML PIGGYBACK IV ONE (10:00)
[2017-10-17 10:01] LABS: TROPONIN I 0.024 ng/mL (0.00-0.056)
[2017-10-17 10:03] LABS: ALANINE AMINOTRANSFERASE 35 U/L (12-78); ALBUMIN 2.3 g/dL (3.4-5.0); ALKALINE PHOSPHATASE 70 U/L (46-116); ASPARTATE AMINOTRANSFERASE 20 U/L (15-37); BILIRUBIN,DIRECT 0.1 mg/dL (0.0-0.2); BILIRUBIN,TOTAL 0.3 mg/dL (0.2-1.0); INR 0.92 (0.87-1.13); PROTHROMBIN TIME 9.6 SECS (9.5-12.7); TOTAL PROTEIN, SERUM 5.6 g/dL (6.4-8.2)
[2017-10-17] MEDS ORDERED: LEVOFLOXACIN 750 MG /D5W 150ML 150 ML IV ONE (10:17)
[2017-10-17 10:48] LABS: LYMPHOCYTES % (MANUAL) 2 % (16-48); MONOCYTES % (MANUAL) 7 % (0-11.0); NEUTROPHILS % (MANUAL) 91 (42-76)
--- NOTE | 2017-10-17 11:12 | NUR ---
PATIENT IS OFF HER BIPAP, PATIENT TOLERATES NC AT 3L/MIN.
--- NOTE | 2017-10-17 11:18 | NUR ---
PATIENT IS EATING LUNCH AT BS.
[2017-10-17 12:29] LABS: ABG BASE EXCESS 1.4 mmol/L; ABG OXYGEN SATURATION 94.5 % (92.0-98.5); ABG PCO2 32.6 mmHg (35.0-45.0); ABG PH 7.489 (7.350-7.450); ABG PO2 69.7 mmHg (75.0-100.0); AaDO2 120.3 mmHg; COHb 0.4 % (0.5-1.5); MetHb 0.3 % (0.0-1.5); O2Hb 93.8 % (94.0-97.0); SITE, ABG Left Brachial; VENT MODE, BG Nasal Cannula
[2017-10-17] MEDS ORDERED: ALENDRONATE 70 MG TABLET PO SCH (13:00)
[2017-10-17] MEDS ORDERED: methylPREDNISolone SOD SUCC 125 MG/2ML VIAL IV SCH (13:00)
[2017-10-17] MEDS ORDERED: VANCOMYCIN 1 GM in IV D5W 250 ML IV ONE ×3 (13:00→18:00)
[2017-10-17] MEDS ORDERED: POTASSIUM CHLORIDE 20 MEQ TAB.PRT.SR PO ONE ×2 (13:00)
[2017-10-17] MEDS ORDERED: ACETAMINOPHEN 325 MG TABLET PO PRN ×2 (13:00→14:15)
[2017-10-17] MEDS ORDERED: LORAZEPAM INJ 2 MG/ML VIAL IVP PRN ×2 (13:00→14:15)
[2017-10-17] MEDS ORDERED: MORPHINE SULFATE INJ 2 MG/ML DISP.SYRIN IV PRN ×2 (13:00→14:15)
[2017-10-17] MEDS ORDERED: ALBUTEROL FS 2.5 MG/0.5 ML VIAL.NEB NEB SCH (13:30)
[2017-10-17] MEDS ORDERED: IPRATROPIUM NEB FS 0.5 MG/2.5 ML AMPUL.NEB NEB SCH (13:30)
--- NOTE | 2017-10-17 13:33 | NUR ---
Alex ernandez in [facility] - 10/17/17 at 1337 by NATACHA [facility] 112-2
--- NOTE | 2017-10-17 14:06 | NUR ---
REPORT GIVEN TO RAMSEY BOONE FOR JACKSON TELE 317-2
--- NOTE | 2017-10-17 14:09 | NUR ---
RECEIVED TELEPHONE REPORT FROM RAMSEY GUSMAN
[2017-10-17 14:30] VITALS: BP 124/85
--- NOTE | 2017-10-17 14:30 | NUR ---
GROUNDS CREW SUPERVISOR ADMITTING NOTE RECEIVED PATIENT TO THE UNIT. PATIENT IS A/O X3, FORGETFUL OF SPECIFIC DATES. PATIENT IS AWAKE AND RESPONSIVE. COMPLAINS OF INTERMITTENT ACHING PAIN IN BLE RADIATING TO BOTH HIPS. WILL ADMINISTER PAIN MEDICATION ONCE ORDERS ARE PLACED. CHEST IS RISING EQUALLY BILATERALLY. SKIN IS INTACT. SPO2 IS 96% ON 2L OXYGEN VIA NASAL CANULA. ALL NEEDS ARE MET AT THIS TIME. PATIENT IS ACCOMPANIED TO THE BED SAFELY. BED IS LOCKED IN THE LOWEST POSITION, SIDE RAILS ARE P X3, BED ALARM IS ON. CALL LIGHTR WITHIN REACH. PATIENT EDUCATED TO USE THE CALL LIGHT TO CALL FOR ASSITENCE. PATIENT VERBALIZED UNDERSTANDING. MD IS AWARE OF PATIENT'S ARRIVAL TO THE UNIT. WILL CONTINUE TO ASSESS/MONITOR THROUGHOUT THE SHIFT.
[2017-10-17] MEDS ORDERED: FEE PK DOSING 1 MIN EA MC ONE (14:39)
--- NOTE | 2017-10-17 15:00 | NUR ---
PATIENT REFUSED DVT PUMPS. RISKS AND BENEFITS DISCUSSED. PATIENT VERBALIZED UNDERSTANDING AND STATED " I HAVE A LEGAL RISHT TO REFUSE. I DON'T WANT THEM ON ME."
--- NOTE | 2017-10-17 15:43 | NUR ---
CHARGE NURSE KAM RECEIVED A DIET ORDER FROM DR WILEY FOR CARDIAC DIET. WILL CARRY OUT ORDERED.
[2017-10-17 16:00] VITALS: BP_SYST 150; BP_SYST 159; BP_DIAS 78; BP_DIAS 79
[2017-10-17] MEDS: MORPHINE SULFATE INJ 4 MG/ML DISP.SYRIN IV PRN ×2 (16:15→20:36)
[2017-10-17] MEDS: AZTREONAM 1 G in IV NS 0.9% 100 ML IV SCH ×2 (16:15→23:21)
[2017-10-17] MEDS: GABAPENTIN 300 MG CAPSULE PO SCH (16:18)
[2017-10-17] MEDS: methylPREDNISolone SOD SUCC 125 MG/2ML VIAL IV SCH ×2 (16:21→20:44)
[2017-10-17] MEDS ORDERED: GABAPENTIN 300 MG CAPSULE PO SCH (17:00)
--- NOTE | 2017-10-17 17:07 | NUR ---
CALLED LAB AND INFORMED OF COLLECTED URINE SAMPLE. SAMPLE IN THE REFREGERATOR IN THE DIRTY UTILITY ROOM. SPOKE TO LOG SKIDDER JARRED.
--- NOTE | 2017-10-17 17:48 | NUR ---
AZACTAM SCANNED AND ADMINISTERED AT 1615 ORDERED. DID NOT SAVE IN THE SYSTEM. SYSTEM ERROR. ADMINISTERED ORDERED. ONCE AT 1615
--- NOTE | 2017-10-17 17:50 | NUR ---
VANCOMYCIN TIME WAS CHANGED BU THE PHARMACY. SPOKE TO PHARMACIST NATALLY. WILL ADMINISTER PRESCRIBED.
--- NOTE | 2017-10-17 17:57 | NUR ---
OFFERED DVT PUMPS AGAIN. PATIENT REFUSED.
[2017-10-17] MEDS ORDERED: PIPERACILLIN /TAZOBACTAM 3.375 G in IV D5W 50 ML IV SCH ×4 (18:00)
[2017-10-17] MEDS: ATORVASTATIN 10 MG TABLET PO SCH (18:58)
--- NOTE | 2017-10-17 19:02 | NUR ---
TRANSMISSION ASSEMBLER CLOSING NOTE PATIENT IS A/O X3, FORGETFUL OF SPECIFIC DATES. PATIENT IS AWAKE AND RESPONSIVE. DENIES PAIN/DISCOMFORT AT THIS TIME. CHEST IS RISING EQUALLY BILATERALLY. SKIN IS INTACT. SPO2 IS 96% ON 2L OXYGEN VIA NASAL CANULA. ALL NEEDS ARE MET AT THIS TIME. PATIENT IS IN BED. BED IS LOCKED IN THE LOWEST POSITION, SIDE RAILS ARE P X3, BED ALARM IS ON. CALL LIGHT WITHIN REACH. PATIENT EDUCATED TO USE THE CALL LIGHT TO CALL FOR ASSISTANCE. PATIENT VERBALIZED UNDERSTANDING. EXTERNAL MONITOR READING SR WITH PACs AND HR 101 BPM. WILL ENDORSE TO THE ELECTRICAL LINE MECHANIC NURSE FOR JACKSON.
--- NOTE | 2017-10-17 19:25 | NUR ---
THROAT CUTTER NOTES RECEIVED PT IN BED, AWAKE, A/O X 3. VERBALLY RESPONSIVE. NO DISTRESS, NO SOB NOTED. ON 02 @ 3LPM GUMARO WELL. IV SITE ON RIGHT WRIST AND PATY PICC LINE, INTACT AND PATENT, NO S/S OF INFILTRATION NOTED. PT DENIES ANY PAIN OR DISCOMFORT AT THIS TIME. ALL NEEDS ATTENDED AND MET. KEPT COMFORTABLE. SAFETY PRECAUTIONS OBSERVED. BED ON LOWEST LEVEL. CALL LIGHT WITHIBN REACH. WILL CONTINUE TO MONITOR.
[2017-10-17 20:00] VITALS: BP 140/63
[2017-10-17 20:33] LABS: APPEARANCE,URINE CLEAR (CLEAR); BILIRUBIN,URINE NEGATIVE (NEGATIVE); BLOOD, URINE NEGATIVE Ery/uL (NEGATIVE); COLOR,URINE YELLOW (YELLOW); KETONES,URINE NEGATIVE (NEGATIVE); LEUKOCYTE ESTERASE ,URINE NEGATIVE (NEGATIVE); NITRITE, URINE NEGATIVE (NEGATIVE); PROTEIN,URINE NEGATIVE (NEGATIVE); UGLUCOSE 3+ mg/dL (NEGATIVE); UROBILINOGEN,URINE 0.2 EU/dL (0.2)
[2017-10-17 21:59] LABS: BACTERIA,URINE Few /HPF (None Seen); RBC,URINE 0-2 /HPF (0-2); SQUAMOUS EPITHELIAL CELL,UR Few /HPF (None Seen); WBC,URINE 0-2 /HPF (0-3)
[2017-10-17] MEDS ORDERED: MIRTAZAPINE 15 MG TABLET PO SCH (22:00)
--- NOTE | 2017-10-17 23:09 | NUR ---
SPOKE WITH DR. BARNETT, RELAYED LACTIC ACID : 2.6, MD WITH NNO AT THIS TIME.
[2017-10-17] MEDS: MIRTAZAPINE 15 MG TABLET PO SCH (23:14)
[2017-10-18] VITALS: BP 118/73
[2017-10-18] MEDS ORDERED: VANCOMYCIN 0.75 GM in IV D5W 250 ML IV SCH (03:00)
[2017-10-18 04:00] VITALS: BP 146/73
[2017-10-18] MEDS: VANCOMYCIN 0.75 GM in IV D5W 250 ML IV SCH ×2 (05:35→19:23)
[2017-10-18] MEDS ORDERED: ALENDRONATE 70 MG TABLET PO SCH ×2 (06:30→07:30)
--- NOTE | 2017-10-18 06:55 | NUR ---
RESIDENTIAL DIRECT SUPPORT PROFESSIONAL NOTES PT IN BED, RESTING COMFORTABLY, AROUSES EASILY. A/O X 3. VERBALLY RESPONSIVE. NO DISTRESS, NO SOB NOTED. ON 02 @ 3LPM GUMARO WELL. SR 66 WITH PAC'S AND PVC'S ON TELE MONITOR. IV SITE ON RIGHT WRIST AND PATY PICC LINE, INTACT AND PATENT, NO S/S OF INFILTRATION NOTED. NO C/O ANY PAIN OR DISCOMFORT AT THIS TIME. ALL NEEDS ATTENDED AND MET. KEPT COMFORTABLE. SAFETY PRECAUTIONS OBSERVED. BED ON LOWEST LEVEL. CALL LIGHT WITHIN REACH. WILL ENDORSE TO NEXT SHIFT FOR JACKSON.
--- NOTE | 2017-10-18 07:00 | NUR ---
PLACED A CALL TO PHARMACY REGARDING FOSAMAX, THEY WILL SEND IT BEFORE BREAKFAST
--- NOTE | 2017-10-18 07:15 | NUR ---
RN OPENING TELE NOTES PT.'S TELE READING IS SINUS BRADYCARDIA 58 BPM WITH PAC'S.
--- NOTE | 2017-10-18 07:30 | NUR ---
WHOLESALE PARTS SALESPERSON/OPENING NOTES RECEIVED PT. IN BED A&OX4. BREATHING UNLABORED ON OXYGEN AT 3L/MIN. NO S/S OF ACUTE DISTRESS. IV FLUIDS AT BEDSIDE. IV ACCESS ON RIGHT UPPER ARM CENTRAL LINE DOUBLE LUMEN, AND RIGHT WRIST INTACT. BED IS IN LOWEST AND LOCKED POSITION, 2 SIDE RAILS UP, AND INSTRUCTED PT. TO USE CALL LIGHT FOR ASSISTANCE. WILL CONTINUE TO ASSESS AND MONITOR.
[2017-10-18 08:00] VITALS: BP 169/72
[2017-10-18] MEDS: FLUTICASONE/VILANTEROL 1 EACH BLST.W.DEV IH SCH (08:34)
--- NOTE | 2017-10-18 08:42 | NUR ---
RN NOTES PT. WAS C/O OF SOB. PT.'S OXYGEN SATURATION WAS 94%. PT. WAS BREATHING LABORED, AND WAS RESTLESS. RESPIRATORY THERAPIST WAS CONTACTED, AND DR. WILEY WAS NOTIFIED. PER MD NEW ORDERS GIVEN, STAT CHEST X RAY, AND ABG'S. RESPIRATORY THERAPIST PERFORMED A BREATHING TX. AND PLACED PT. ON OXYGEN AT 2L/MIN VIA NASAL CANNULA.
--- NOTE | 2017-10-18 08:45 | NUR ---
RN NOTES PT. RECEIVED A CHEST X RAY, AND ABG'S WERE COLLECTED WITHOUT COMPLICATIONS.
[2017-10-18] MEDS: ALBUTEROL FS 2.5 MG/0.5 ML VIAL.NEB NEB SCH ×3 (08:46→20:45)
[2017-10-18] MEDS: IPRATROPIUM NEB FS 0.5 MG/2.5 ML AMPUL.NEB NEB SCH ×3 (08:46→20:45)
[2017-10-18] MEDS: VALSARTAN 40 MG TABLET PO SCH (08:47)
[2017-10-18] MEDS: MORPHINE SULFATE INJ 4 MG/ML DISP.SYRIN IV PRN ×3 (08:50→20:44)
--- NOTE | 2017-10-18 08:50 | NUR ---
RN NOTES AFTER A BREATHING TX. PT. WAS BREATHING COMFORTABLY WITHOUT SOB, AND DISTRESS. PT. IS SATURATING 94% ON OXYGEN AT 2L/MIN VIA NASAL CANNULA.
[2017-10-18] MEDS: FLUOXETINE HCL 20 MG CAPSULE PO SCH (08:53)
[2017-10-18] MEDS: AZTREONAM 1 G in IV NS 0.9% 100 ML IV SCH ×3 (08:55→23:42)
[2017-10-18] MEDS ORDERED: ESTROGENS,CONJUGATED (0.3 mg) 0.3 MG TABLET PO SCH ×2 (09:00)
[2017-10-18] MEDS ORDERED: VALSARTAN 40 MG TABLET PO SCH (09:00)
[2017-10-18] MEDS ORDERED: PANTOPRAZOLE 40 MG VIAL IV SCH (09:00)
--- NOTE | 2017-10-18 09:00 | NUR ---
RN NOTES CALLED PHARMACY FOR MEDICATION PREMARIN, PER PHARMACY WILL BE BROUGHT TO UNIT.
[2017-10-18] MEDS: PANTOPRAZOLE 40 MG VIAL IV SCH (09:06)
[2017-10-18 09:09] LABS: ABG BASE EXCESS 2.8 mmol/L; ABG PCO2 36.2 mmHg (35.0-45.0); ABG PH 7.477 (7.350-7.450); ABG PO2 93.6 mmHg (75.0-100.0); AaDO2 92.2 mmHg; COHb 0.1 % (0.5-1.5); MetHb 0.4 % (0.0-1.5); O2Hb 96.5 % (94.0-97.0); SITE, ABG Right Radial; VENT MODE, BG Nasal Cannula
[2017-10-18] MEDS: methylPREDNISolone SOD SUCC 125 MG/2ML VIAL IV SCH ×2 (09:10→15:16)
[2017-10-18] MEDS: GABAPENTIN 300 MG CAPSULE PO SCH ×2 (09:19→18:00)
[2017-10-18 10:08] LABS: CALCIUM, SERUM 8.2 mg/dL (8.5-10.1); CARBON DIOXIDE 27 mmol/L (21-32); CHLORIDE 100 mmol/L (98-107); CREATININE 0.8 mg/dL (0.6-1.3); POTASSIUM 4.1 mmol/L (3.5-5.1); SODIUM SERUM 133 mmol/L (136-145); UREA NITROGEN, BLOOD 22 mg/dL (7-18)
[2017-10-18 10:13] LABS: GLUCOSE 467 mg/dL (74-106)
[2017-10-18 15:58] VITALS: BP 123/68
[2017-10-18] MEDS: ATORVASTATIN 10 MG TABLET PO SCH (18:09)
--- NOTE | 2017-10-18 19:54 | NUR ---
MACHINE JOINT CUTTER/CLOSING NOTES PT.'S TELE READING IS SINUS RHYTHM 74 BPM.
--- NOTE | 2017-10-18 19:55 | NUR ---
BIAS CUTTING MACHINE OPERATOR VERTICAL/CLOSING NOTES RECEIVED PT. IN BED A&OX4. BREATHING UNLABORED ON OXYGEN AT 2L/MIN. NO S/S OF ACUTE DISTRESS. IV FLUIDS AT BEDSIDE. IV ANTIBIOTICS RUNNING ON RIGHT CENTRAL LINE. IV ACCESS ON RIGHT WRIST IS INTACT. BED IS IN LOWEST AND LOCKED POSITION, 2 SIDE RAILS UP, AND INSTRUCTED PT. TO USE CALL LIGHT FOR ASSISTANCE. WILL ENDORSE REPORT TO NURSE.
[2017-10-18 20:00] VITALS: BP 148/66
--- NOTE | 2017-10-18 20:00 | NUR ---
RN NOTES RECEIVED PATIENT IN BED, ALERT AND ORIENTED X3, ABLE TO VERBALIZE NEEDS, CALM, NOTED CONGESTION, RECEIVING 2LPM VIA NC, SPO2 96%, COMPLAINING OF CHRONIC PAIN TO BACK AND SHOULDERS, PATIENT AWARE PAIN MEDICATION IS NOT DUE YET. PATY PICC LINE IS PATENT AND SECURED WITH DRESSING. KEPT SAFE AND COMFORTABLE, CALL LIGHT WITHIN REACH
[2017-10-18 20:35] VITALS: BP 148/66
--- NOTE | 2017-10-18 21:00 | NUR ---
RN NOTES REFUSED BREATHING TREATMENT, EXPLAINED RISKS AND BENEFITS, OFFERD X3, STILL REFUSED. PER PATIENT "I WANT IT TOMORROW."
[2017-10-18] MEDS: MIRTAZAPINE 15 MG TABLET PO SCH (22:19)
[2017-10-19] MEDS: IPRATROPIUM NEB FS 0.5 MG/2.5 ML AMPUL.NEB NEB SCH ×4 (01:23→19:59)
[2017-10-19] MEDS: ALBUTEROL FS 2.5 MG/0.5 ML VIAL.NEB NEB SCH ×4 (01:23→19:59)
--- NOTE | 2017-10-19 05:51 | NUR ---
RN NOTES PATIENT REQUESTED ACCUCHECK, BG 184 MG/DL
--- NOTE | 2017-10-19 06:19 | NUR ---
RN NOTES NO VANCO TROUGH RESULT YET.
--- NOTE | 2017-10-19 06:20 | NUR ---
RN NOTES PATIENT IN BED, ALERT AND AWAKE, NO SOB, TOLERATING 2LPM VIA NC, PROVIDED PAIN MEDICATION DURING SHIFT, PATY MIDLINE ON KVO, INFUSING WELL, SECURED WITH DRESSING, NO ADVERSE SIDE EFFECTS TO MEDICATIONS, ALL NEEDS ATTENDED, CALL LIGHT WITHIN REACH.
[2017-10-19 06:42] LABS: BASOPHILS % (AUTO) 0.1 % (0.0-2.0); EOSINOPHILS # (AUTO) 0.1 /CMM (0.0-0.7); EOSINOPHILS % (AUTO) 0.4 % (0.0-6.0); HEMATOCRIT 36 % (33-45); HEMOGLOBIN 11.6 g/dL (11.5-14.8); LYMPHOCYTES # (AUTO) 0.6 /CMM (0.8-4.8); LYMPHOCYTES % (AUTO) 3.9 % (20.0-44.0); MEAN CORPUSCULAR HEMOGLOBIN 27 PG (26.0-33.0); MEAN CORPUSCULAR HGB CONC 32 g/dl (31.0-36.0); MEAN CORPUSCULAR VOLUME 84 fL (82-100); MONOCYTES # (AUTO) 0.5 /CMM (0.1-1.30); MONOCYTES % (AUTO) 2.9 % (2.0-12.0); NEUTROPHILS # (AUTO) 14.6 /CMM (1.8-8.9); NEUTROPHILS % (AUTO) 92.7 % (43.0-81.0); PLATELET COUNT (AUTO) 161 /CMM (150-450); RED BLOOD CELL COUNT(AUTO) 4.26 MIL/uL (4.0-5.2); WHITE BLOOD COUNT (AUTO) 15.7 K/uL (4.3-11.0)
--- NOTE | 2017-10-19 07:11 | NUR ---
GIVEN TYLENOL FOR TOOTHACHE OF 12/21
[2017-10-19 07:27] LABS: CALCIUM, SERUM 8.9 mg/dL (8.5-10.1); CARBON DIOXIDE 28 mmol/L (21-32); CHLORIDE 105 mmol/L (98-107); CREATININE 0.7 mg/dL (0.6-1.3); GLUCOSE 175 mg/dL (74-106); MAGNESIUM 2.1 mg/dL (1.8-2.4); PHOSPHORUS 2.7 mg/dL (2.5-4.9); POTASSIUM 4.4 mmol/L (3.5-5.1); SODIUM SERUM 140 mmol/L (136-145); UREA NITROGEN, BLOOD 24 mg/dL (7-18)
--- NOTE | 2017-10-19 07:48 | NUR ---
MS RN OPENING NOTE PATIENT IS A/O X3, FORGETFUL OF SPECIFIC DATES. PATIENT IS AWAKE AND RESPONSIVE. REPORTS ACUTE ACHING PAIN IN BILATERAL HIPS AND BLE. WILL ADMINISTER PAIN MEDICATION PRESCRIBED. CHEST IS RISING EQUALLY BILATERALLY. SKIN IS INTACT. SPO2 IS 97% ON 2L OXYGEN VIA NASAL CANULA. ALL NEEDS ARE MET AT THIS TIME. PATIENT IS IN BED. BED IS LOCKED IN THE LOWEST POSITION, SIDE RAILS ARE P X3, BED ALARM IS ON. CALL LIGHT WITHIN REACH. PATIENT EDUCATED TO USE THE CALL LIGHT TO CALL FOR ASSISTANCE. PATIENT VERBALIZED UNDERSTANDING. WILL CONTINUE TO ASSESS/MONITOR THROUGHOUT THE SHIFT.
[2017-10-19 08:00] VITALS: BP 157/64
[2017-10-19] MEDS: FLUTICASONE/VILANTEROL 1 EACH BLST.W.DEV IH SCH (10:26)
[2017-10-19] MEDS: methylPREDNISolone SOD SUCC 125 MG/2ML VIAL IV SCH (10:27)
[2017-10-19] MEDS: VANCOMYCIN 0.75 GM in IV D5W 250 ML IV SCH ×2 (10:30→22:13)
[2017-10-19] MEDS: FLUOXETINE HCL 20 MG CAPSULE PO SCH (10:31)
[2017-10-19] MEDS: VALSARTAN 40 MG TABLET PO SCH (10:31)
[2017-10-19] MEDS: GABAPENTIN 300 MG CAPSULE PO SCH ×2 (10:31→17:11)
[2017-10-19] MEDS: PANTOPRAZOLE 40 MG VIAL IV SCH (10:32)
[2017-10-19] MEDS: MORPHINE SULFATE INJ 4 MG/ML DISP.SYRIN IV PRN ×3 (10:35→21:19)
[2017-10-19] MEDS: AZTREONAM 1 G in IV NS 0.9% 100 ML IV SCH ×3 (12:56→23:36)
--- NOTE | 2017-10-19 12:57 | NUR ---
[facility] [employer] WAS MISSING FROM THE [place]. WAS MISSPLACED. ADMINISTRING ONCE AVAILABLE
[2017-10-19 16:00] VITALS: BP 163/66
[2017-10-19] MEDS: Z GUARD REMEDY 4 OZ OINT TP PRN (17:10)
[2017-10-19] MEDS: ATORVASTATIN 10 MG TABLET PO SCH (17:11)
--- NOTE | 2017-10-19 18:21 | NUR ---
MS RN CLOSING NOTE PATIENT IS A/O X3, FORGETFUL OF SPECIFIC DATES. PATIENT IS AWAKE AND RESPONSIVE. REPORTS PAIN BEING CONTROLLED BY RECEINTLY ADMINISTERED PRN MORPHINE. CHEST IS RISING EQUALLY BILATERALLY. SKIN IS INTACT. SPO2 IS 97% ON 2L OXYGEN VIA NASAL CANULA. ALL NEEDS ARE MET AT THIS TIME. PATIENT IS IN BED. BED IS LOCKED IN THE LOWEST POSITION, SIDE RAILS ARE P X3, BED ALARM IS ON. CALL LIGHT WITHIN REACH. PATIENT EDUCATED TO USE THE CALL LIGHT TO CALL FOR ASSISTANCE. PATIENT VERBALIZED UNDERSTANDING. WILL ENDORSE TO THE [facility] NURSE FOR [facility].
--- NOTE | 2017-10-19 19:05 | NUR ---
MS RN OPENING NOTES: RECEIVED PT IN SEMI-BUTLER'S POSITION. PT IS AWAKE AT THIS TIME. PT ON 2LPM VIA NC AND TOLERATING WELL. PT IS A/OX3. PT HAS PATY PICC LINE AND IS PATENT AND INTACT. PT ALSO HAS R WRIST #22G AND IS ALSO PATENT AND INTACT. BOTH S/L. NO S/S OF DISTRESS AT THIS TIME. CALL LIGHT WITHIN PT'S REACH. BED KEPT IN LOW, LOCKED POSITION, AND SIDE RAILS X 2 UP. WILL CONTINUE TO MONITOR PT.
[2017-10-19 20:00] VITALS: BP 164/84
[2017-10-19 20:19] VITALS: BP 164/84
[2017-10-19] MEDS: MIRTAZAPINE 15 MG TABLET PO SCH (21:19)
[2017-10-20] MEDS: IPRATROPIUM NEB FS 0.5 MG/2.5 ML AMPUL.NEB NEB SCH ×2 (01:58→08:21)
[2017-10-20] MEDS: ALBUTEROL FS 2.5 MG/0.5 ML VIAL.NEB NEB SCH ×2 (01:58→08:21)
[2017-10-20] MEDS: MORPHINE SULFATE INJ 4 MG/ML DISP.SYRIN IV PRN ×3 (06:20→16:17)
--- NOTE | 2017-10-20 07:02 | NUR ---
MS RN CLOSING NOTES: ALL NEEDS WERE ATTENDED AND ANTICIPATED FOR. PT ON 2LPM VIA NC AND TOLERATING WELL. PT IS A/OX3. PT HAS PATY PICC LINE AND IS PATENT AND INTACT. PT ALSO HAS R WRIST #22G AND IS ALSO PATENT AND INTACT. BOTH S/L. PT HAS SCHEDULED BREATHING TX. NO S/S OF DISTRESS AT THIS TIME. CALL LIGHT WITHIN PT'S REACH. BED KEPT IN LOW, LOCKED POSITION, AND SIDE RAILS X 2 UP. PT ALSO ON SEMI BUTLER'S POSITION. ENDORSED TO AM NURSE FOR JACKSON.
--- NOTE | 2017-10-20 07:50 | NUR ---
MS RN OPENING NOTE PATIENT IS A/O X3, FORGETFUL OF SPECIFIC DATES. PATIENT IS AWAKE AND RESPONSIVE. REPORTS ACUTE ACHING PAIN IN BILATERAL HIPS AND BLE. WILL ADMINISTER PAIN MEDICATION PRESCRIBED. CHEST IS RISING EQUALLY BILATERALLY. SKIN IS INTACT. SPO2 IS 96% ON 2L OXYGEN VIA NASAL CANULA. ALL NEEDS ARE MET AT THIS TIME. PATIENT IS IN BED. BED IS LOCKED IN THE LOWEST POSITION, SIDE RAILS ARE P X3, BED ALARM IS ON. CALL LIGHT WITHIN REACH. PATIENT EDUCATED TO USE THE CALL LIGHT TO CALL FOR ASSISTANCE. PATIENT VERBALIZED UNDERSTANDING. WILL CONTINUE TO ASSESS/MONITOR THROUGHOUT THE SHIFT.
[2017-10-20 07:56] LABS: BASOPHILS % (AUTO) 0.2 % (0.0-2.0); HEMATOCRIT 36 % (33-45); HEMOGLOBIN 11.7 g/dL (11.5-14.8); LYMPHOCYTES # (AUTO) 0.8 /CMM (0.8-4.8); LYMPHOCYTES % (AUTO) 4.9 % (20.0-44.0); MEAN CORPUSCULAR HEMOGLOBIN 27 PG (26.0-33.0); MEAN CORPUSCULAR HGB CONC 33 g/dl (31.0-36.0); MEAN CORPUSCULAR VOLUME 84 fL (82-100); MONOCYTES # (AUTO) 0.3 /CMM (0.1-1.30); MONOCYTES % (AUTO) 1.8 % (2.0-12.0); NEUTROPHILS # (AUTO) 15.1 /CMM (1.8-8.9); NEUTROPHILS % (AUTO) 93.1 % (43.0-81.0); PLATELET COUNT (AUTO) 140 /CMM (150-450); RDW COEFFICIENT OF VARIATION 16.5 (11.5-15.0); WHITE BLOOD COUNT (AUTO) 16.2 K/uL (4.3-11.0)
[2017-10-20 08:00] VITALS: BP 126/71
[2017-10-20 08:21] LABS: CARBON DIOXIDE 30 mmol/L (21-32); CHLORIDE 102 mmol/L (98-107); CREATININE 0.8 mg/dL (0.6-1.3); GLUCOSE 158 mg/dL (74-106); MAGNESIUM 1.9 mg/dL (1.8-2.4); PHOSPHORUS 2.5 mg/dL (2.5-4.9); SODIUM SERUM 138 mmol/L (136-145); UREA NITROGEN, BLOOD 21 mg/dL (7-18)
[2017-10-20] MEDS: FLUTICASONE/VILANTEROL 1 EACH BLST.W.DEV IH SCH (10:12)
[2017-10-20] MEDS: PANTOPRAZOLE 40 MG VIAL IV SCH (10:14)
[2017-10-20] MEDS: FLUOXETINE HCL 20 MG CAPSULE PO SCH (10:15)
[2017-10-20] MEDS: VALSARTAN 40 MG TABLET PO SCH (10:16)
[2017-10-20] MEDS: GABAPENTIN 300 MG CAPSULE PO SCH ×2 (10:17→16:15)
[2017-10-20] MEDS: methylPREDNISolone SOD SUCC 125 MG/2ML VIAL IV SCH (10:18)
[2017-10-20] MEDS: AZTREONAM 1 G in IV NS 0.9% 100 ML IV SCH ×2 (10:22→16:13)
--- NOTE | 2017-10-20 10:26 | NUR ---
PATIENT COMPLAINS OF ACUTE PAIN RATION 8-9/10 IN LOW BACK, SHOULDERS AND NECK. ADMINISTERING MORPHINE PRESCRIBED.
--- NOTE | 2017-10-20 11:26 | NUR ---
NS WAS NOPT SCANNED ON 10/17/2017 BY ANOTHER SHIFT. DOCUMENTED NON-ADMINISTERED TO CLEAR THE EMAR FROM NON-ADMINISTERED REMINDER.
[2017-10-20] MEDS: VANCOMYCIN 0.75 GM in IV D5W 250 ML IV SCH (11:31)
[2017-10-20] MEDS ORDERED: ALBU2.5V13 NEB (13:18)
[2017-10-20] MEDS ORDERED: GUAI-877 PO (13:18)
[2017-10-20] MEDS ORDERED: IPRA0.2S9 NEB (13:18)
[2017-10-20] MEDS ORDERED: LEVO750T21 GT (13:18)
[2017-10-20 16:00] VITALS: BP 131/81
--- NOTE | 2017-10-20 16:00 | NUR ---
Patient reports acute pain rating 9/10. Will administer pain medications as prescribed
[2017-10-20] MEDS: Z GUARD REMEDY 4 OZ OINT TP PRN (16:18)
--- NOTE | 2017-10-20 16:32 | NUR ---
Patient is being discharged to transferred to [facility]. Telephone SBAR report given to Waldo is [facility] for jerome. Discharge education provided to the patient. All belongings are accounted for.
[2017-10-20] MEDS: ATORVASTATIN 10 MG TABLET PO SCH (18:00)
--- NOTE | 2017-10-20 19:41 | NUR ---
MS COMMERCIAL ENERGY AUDITOR NOTE PICC LINE REMOVED WITH THE TIP INTACT. OCLUSIVE DRESSING APPLIED. PERIPHERAL IV CATHETER REMOVED WITH THE TIP INTACT. OCLUSIVE DRESSING APPLIED. PATIENT TOLERATED THE PROCEDURE WELL. PATIENT IS BEING PICKED UP BY THE AMBULANCE. VS WNL. PATIENT IS LEAVING THE UNIT IN STABLE CONDITION.
== END 2017-10-20 19:45 | DRG 189 ==
LOC: ER 07:24 → TELE 14:14 → MED 10-18 17:24
PROVIDERS: ADMIT Internal Medicine; ATTEND Internal Medicine
PROC: 02HV33Z Insertion of Infusion Device into Superior Vena Cava, Percutaneous Approach (ICD-10-PCS; principal; 2017-10-18)
PROC: B548ZZA Ultrasonography of Superior Vena Cava, Guidance (ICD-10-PCS; 2017-10-18)
DX: J96.01 Acute respiratory failure with hypoxia (principal); N17.0 Acute kidney failure with tubular necrosis; J18.9 Pneumonia, unspecified organism; G93.41 Metabolic encephalopathy; J44.0 Chronic obstructive pulmonary disease with (acute) lower respiratory infection; J44.1 Chronic obstructive pulmonary disease with (acute) exacerbation; J44.9 Chronic obstructive pulmonary disease, unspecified; M19.90 Unspecified osteoarthritis, unspecified site; F03.90 Unspecified dementia, unspecified severity, without behavioral disturbance, psychotic disturbance, mood disturbance, and anxiety; F17.210 Nicotine dependence, cigarettes, uncomplicated; Z90.710 Acquired absence of both cervix and uterus; I10 Essential (primary) hypertension; Z86.73 Personal history of transient ischemic attack (TIA), and cerebral infarction without residual deficits; Z88.0 Allergy status to penicillin; Z88.2 Allergy status to sulfonamides; Z79.899 Other long term (current) drug therapy; Z79.51 Long term (current) use of inhaled steroids; K44.9 Diaphragmatic hernia without obstruction or gangrene
CPT/HCPCS: 36415; 36600; 71045-TC; 80048-TC; 80076-TC; 80202-TC; 81000-TC; 82962-TC; 83605-TC; 83735-TC; 84100-TC; 84484-TC; 85025-TC; 85730-TC; 87040-TC; 87081-TC; 87086-TC; 87400; 93307-TC; 94799-TC; A4606; C1751; C9113; J1956; J2270; J2543; J2930; J3370; J3490; J7030; J7060; Z7610

== ENCOUNTER 2017-10-25 22:28 | Inpatient (IN) | payer MEDICARE, OTHER ==
[~2017-10-25] VITALS: Ht 162.6 cm; Wt 55.3 kg
[~2017-10-25 22:28] MED LIST changes: +ALBU2.5V13 NEB; +ALEN70TA3 PO; +BUDE10.22 IH; +ESTR0.3T3 PO; +FLUO40CA8 PO; +GABA-534 PO; +GUAI-877 PO; +IPRA0.2S9 NEB; +LEVO750T21 GT; +MIRT15TA PO; +ROSU20TA PO; +VALS40TA4 PO
[2017-10-25 22:38] VITALS: BP 147/81
[2017-10-25] MEDS ORDERED: FUROSEMIDE 40 MG/4 ML VIAL ONE (22:42)
[2017-10-25] MEDS ORDERED: ACETAMINOPHEN 650 MG/SUPP.RECT RC ONE ×2 (22:43→23:00)
[2017-10-25] MEDS ORDERED: NITROGLYCERIN PACKET 1 GM PACKET ONE (22:43)
[2017-10-25] MEDS ORDERED: FUROSEMIDE 40 MG/4 ML VIAL IV ONE ×2 (23:00)
[2017-10-25] MEDS ORDERED: NITROGLYCERIN PACKET 1 GM PACKET TD ONE (23:00)
[2017-10-25 23:37] LABS: CARBON DIOXIDE 23 mmol/L (21-32); CHLORIDE 99 mmol/L (98-107); CREATININE 1.1 mg/dL (0.6-1.3); GLUCOSE 219 mg/dL (74-106); POTASSIUM 5.1 mmol/L (3.5-5.1); SODIUM SERUM 134 mmol/L (136-145); UREA NITROGEN, BLOOD 27 mg/dL (7-18)
[2017-10-25 23:44] LABS: MEAN CORPUSCULAR HGB CONC 32 g/dl (31.0-36.0); TROPONIN I 0.702 ng/mL (0.00-0.056)
[2017-10-25 23:49] LABS: ALANINE AMINOTRANSFERASE 183 U/L (12-78); ALBUMIN 1.5 g/dL (3.4-5.0); ALKALINE PHOSPHATASE 256 U/L (46-116); ASPARTATE AMINOTRANSFERASE 382 U/L (15-37); B-TYPE NATRIURETIC PEPTIDE 594 PG/ML (0-125); BILIRUBIN,DIRECT 0.1 mg/dL (0.0-0.2); BILIRUBIN,TOTAL 0.4 mg/dL (0.2-1.0); TOTAL PROTEIN, SERUM 6.9 g/dL (6.4-8.2)
[2017-10-26] VITALS (41 sets, daily range): BP systolic 85–157; BP diastolic 23–108
[2017-10-26] MEDS ORDERED: ASPIRIN 300 MG/SUPP.RECT RC ONE ×2 (00:12)
[2017-10-26 00:18] LABS: ABG BASE EXCESS -2.3 mmol/L; ABG OXYGEN SATURATION 99.3 % (92.0-98.5); ABG PCO2 37.8 mmHg (35.0-45.0); ABG PH 7.389 (7.350-7.450); ABG PO2 329.5 mmHg (75.0-100.0); SITE, ABG Right Radial
[2017-10-26 00:19] LABS: AaDO2 345.7 mmHg; COHb 0.5 % (0.5-1.5); MetHb 0.5 % (0.0-1.5); O2Hb 98.3 % (94.0-97.0)
[2017-10-26 00:33] LABS: APPEARANCE,URINE CLOUDY (CLEAR); BILIRUBIN,URINE 1+ (NEGATIVE); BLOOD, URINE TRACE-INTA Ery/uL (NEGATIVE); COLOR,URINE YELLOW (YELLOW); KETONES,URINE 2+ (NEGATIVE); LEUKOCYTE ESTERASE ,URINE 1+ (NEGATIVE); NITRITE, URINE NEGATIVE (NEGATIVE); PROTEIN,URINE 2+ mg/dl (NEGATIVE); UGLUCOSE NEGATIVE (NEGATIVE); UROBILINOGEN,URINE 0.2 EU/dL (0.2)
[2017-10-26 00:36] LABS: EOSINOPHILS % (AUTO) 0.2 % (0.0-6.0); HEMATOCRIT 35 % (33-45); HEMOGLOBIN 11.3 g/dL (11.5-14.8); LYMPHOCYTES # (AUTO) 0.3 /CMM (0.8-4.8); LYMPHOCYTES % (AUTO) 1.7 % (20.0-44.0); MEAN CORPUSCULAR HEMOGLOBIN 27 PG (26.0-33.0); MEAN CORPUSCULAR VOLUME 83 fL (82-100); MONOCYTES # (AUTO) 0.3 /CMM (0.1-1.30); MONOCYTES % (AUTO) 1.5 % (2.0-12.0); NEUTROPHILS # (AUTO) 18.3 /CMM (1.8-8.9); NEUTROPHILS % (AUTO) 96.6 % (43.0-81.0); PLATELET COUNT (AUTO) 120 /CMM (150-450); RDW COEFFICIENT OF VARIATION 17.2 (11.5-15.0); RED BLOOD CELL COUNT(AUTO) 4.22 MIL/uL (4.0-5.2); WHITE BLOOD COUNT (AUTO) 18.9 K/uL (4.3-11.0)
[2017-10-26 00:47] LABS: BACTERIA,URINE 1+ /HPF (None Seen); SQUAMOUS EPITHELIAL CELL,UR Many /HPF (None Seen); WBC,URINE 21-50 /HPF (0-3)
[2017-10-26 00:48] LABS: MUCUS,URINE Few /LPF (None Seen)
[2017-10-26] MEDS ORDERED: MORPHINE SULFATE INJ 2 MG/ML DISP.SYRIN IV PRN (01:00)
[2017-10-26] MEDS ORDERED: FUROSEMIDE 40 MG/4 ML VIAL IV ONE ×2 (01:00→21:30)
[2017-10-26] MEDS ORDERED: CIPROFLOXACIN IV RTU 400 MG in PREMIX 1 EA IV SCH (01:00)
[2017-10-26] MEDS ORDERED: VANCOMYCIN 1 GM in IV D5W 250 ML IV ONE (01:00)
[2017-10-26] MEDS ORDERED: ONDANSETRON HCL/PF 4 MG/2 ML VIAL IVP PRN (01:00)
[2017-10-26 01:03] LABS: BAND % (MANUAL) 5 % (0.0-5.0); LYMPHOCYTES % (MANUAL) 4 % (16-48); METAMYELOCYTES % 1 % (0-0); MONOCYTES % (MANUAL) 1 % (0-11.0); NEUTROPHILS % (MANUAL) 89 (42-76)
[2017-10-26 01:05] LABS: INR 0.97 (0.87-1.13)
[2017-10-26] MEDS ORDERED: methylPREDNISolone SOD SUCC 125 MG/2ML VIAL IV SCH (01:30)
[2017-10-26] MEDS ORDERED: CIPROFLOXACIN IV RTU 200 ML IV ONE (02:03)
[2017-10-26] MEDS ORDERED: methylPREDNISolone SOD SUCC 125 MG/2ML VIAL ONE (02:08)
[2017-10-26] MEDS ORDERED: VANCOMYCIN 1 GM VIAL ONE (02:08)
[2017-10-26] MEDS ORDERED: ALBUTEROL FS 2.5 MG/0.5 ML VIAL.NEB ONE (02:24)
[2017-10-26] MEDS ORDERED: IPRATROPIUM NEB FS 0.5 MG/2.5 ML AMPUL.NEB ONE (02:24)
[2017-10-26] MEDS: IPRATROPIUM NEB FS 0.5 MG/2.5 ML AMPUL.NEB NEB SCH ×4 (02:27→19:39)
[2017-10-26] MEDS: ALBUTEROL FS 2.5 MG/0.5 ML VIAL.NEB NEB SCH ×4 (02:27→19:39)
[2017-10-26] MEDS ORDERED: PHENYLEPHRINE 40 MG in IV D5W 250 ML IV PRN (03:30)
[2017-10-26 03:51] LABS: ABG BASE EXCESS 1.3 mmol/L; ABG OXYGEN SATURATION 99.1 % (92.0-98.5); ABG PCO2 39.4 mmHg (35.0-45.0); ABG PH 7.431 (7.350-7.450); ABG PO2 288.3 mmHg (75.0-100.0); AaDO2 96.2 mmHg; COHb 0.3 % (0.5-1.5); MetHb 0.5 % (0.0-1.5); O2Hb 98.3 % (94.0-97.0); SITE, ABG Right Radial; VENT MODE, BG Bipap 20/10 60% br16
[2017-10-26] MEDS: IV NS 0.9% 250 ML IV PRN (04:02)
[2017-10-26] MEDS ORDERED: AZTREONAM 1 G VIAL ONE (04:47)
[2017-10-26] MEDS ORDERED: AZTREONAM 1 G in IV NS 0.9% 50 ML IV SCH (05:00)
[2017-10-26 05:38] LABS: HEMATOCRIT 33 % (33-45); HEMOGLOBIN 10.6 g/dL (11.5-14.8); LYMPHOCYTES # (AUTO) 0.5 /CMM (0.8-4.8); MEAN CORPUSCULAR HEMOGLOBIN 27 PG (26.0-33.0); MEAN CORPUSCULAR HGB CONC 32 g/dl (31.0-36.0); MEAN CORPUSCULAR VOLUME 85 fL (82-100); MONOCYTES # (AUTO) 0.4 /CMM (0.1-1.30); MONOCYTES % (AUTO) 2.3 % (2.0-12.0); NEUTROPHILS # (AUTO) 16.3 /CMM (1.8-8.9); NEUTROPHILS % (AUTO) 94.7 % (43.0-81.0); PLATELET COUNT (AUTO) 81 /CMM (150-450); RDW COEFFICIENT OF VARIATION 16.9 (11.5-15.0); RED BLOOD CELL COUNT(AUTO) 3.94 MIL/uL (4.0-5.2); WHITE BLOOD COUNT (AUTO) 17.3 K/uL (4.3-11.0)
[2017-10-26 05:51] LABS: MAGNESIUM 2.4 mg/dL (1.8-2.4)
[2017-10-26 06:05] LABS: B-TYPE NATRIURETIC PEPTIDE 2084 PG/ML (0-125); CALCIUM, SERUM 8.6 mg/dL (8.5-10.1); CARBON DIOXIDE 26 mmol/L (21-32); CHLORIDE 98 mmol/L (98-107); CREATININE 1.4 mg/dL (0.6-1.3); GLUCOSE 321 mg/dL (74-106); PHOSPHORUS 4.2 mg/dL (2.5-4.9); POTASSIUM 4.5 mmol/L (3.5-5.1); SODIUM SERUM 134 mmol/L (136-145); UREA NITROGEN, BLOOD 34 mg/dL (7-18)
[2017-10-26 06:08] LABS: TROPONIN I 1.564 ng/mL (0.00-0.056)
[2017-10-26 06:24] LABS: BAND % (MANUAL) 7 % (0.0-5.0); LYMPHOCYTES % (MANUAL) 2 % (16-48); MONOCYTES % (MANUAL) 5 % (0-11.0); NEUTROPHILS % (MANUAL) 86 (42-76)
[2017-10-26] MEDS: VALSARTAN 40 MG TABLET PO SCH (08:53)
[2017-10-26] MEDS ORDERED: FEE PK DOSING 1 MIN EA MC ONE (08:57)
[2017-10-26] MEDS ORDERED: ESTROGENS,CONJUGATED (0.3 mg) 0.3 MG TABLET PO SCH (09:00)
[2017-10-26] MEDS ORDERED: ENOXAPARIN SODIUM 60 MG/0.6 ML DISP.SYRIN SQ SCH (09:00)
[2017-10-26] MEDS ORDERED: Medication Not On Formulary EA (Budesonide/Formoterol Fumarate (Symbicort 80-4.5 Mcg Inh IH SCH (09:00)
[2017-10-26] MEDS ORDERED: IV LR 1000 ML 1,000 ML IV PRN (09:30)
[2017-10-26] MEDS ORDERED: IV LR 1000 ML 1,000 ML IV SCH (09:30)
[2017-10-26] MEDS: FLUOXETINE HCL 20 MG CAPSULE PO SCH (09:53)
[2017-10-26] MEDS: GABAPENTIN 300 MG CAPSULE PO SCH ×2 (09:53→17:16)
[2017-10-26] MEDS: ACETAMINOPHEN 325 MG TABLET PO PRN (09:53)
[2017-10-26] MEDS ORDERED: FUROSEMIDE 40 MG/4 ML VIAL IV SCH (10:00)
[2017-10-26] MEDS ORDERED: MORPHINE SULFATE INJ 4 MG/ML DISP.SYRIN IV PRN (10:30)
[2017-10-26] MEDS: ASPIRIN EC 325 MG TABLET.DR PO SCH (10:32)
[2017-10-26] MEDS ORDERED: IV NS 0.9% 1,000 ML IV PRN (10:57)
[2017-10-26] MEDS: methylPREDNISolone SOD SUCC 125 MG/2ML VIAL IV SCH ×2 (11:20→17:17)
[2017-10-26 12:01] LABS: ABG BASE EXCESS 4.8 mmol/L; ABG PH 7.474 (7.350-7.450); ABG PO2 94.8 mmHg (75.0-100.0); AaDO2 57.6 mmHg; COHb 0.3 % (0.5-1.5); MetHb 0.6 % (0.0-1.5); O2Hb 96.1 % (94.0-97.0); SITE, ABG Right Radial; VENT MODE, BG 2LNC
[2017-10-26] MEDS: Z GUARD REMEDY 2 OZ OINT TP PRN (12:44)
[2017-10-26] MEDS: LEVOFLOXACIN 750 MG /D5W 150ML 750 MG in PREMIX 1 EA IV SCH (12:44)
[2017-10-26] MEDS: NYSTATIN/TRIAMCIN CREAM 15 GM TUBE TP SCH (16:14)
[2017-10-26] MEDS: BOOST PLUS FOOD-VANILLA 237 ML BOX PO SCH (16:17)
[2017-10-26] MEDS ORDERED: AZTREONAM 1 G in IV NS 0.9% 100 ML IV SCH (17:00)
[2017-10-26] MEDS ORDERED: ATORVASTATIN 10 MG TABLET PO SCH (18:00)
[2017-10-26] MEDS: LORAZEPAM INJ 2 MG/ML VIAL IVP PRN (18:51)
[2017-10-26] MEDS: VANCOMYCIN 0.75 GM in IV D5W 250 ML IV SCH (20:15)
[2017-10-26] MEDS ORDERED: FUROSEMIDE 40 MG/4 ML VIAL ONE (21:06)
[2017-10-26] MEDS: ATORVASTATIN 10 MG TABLET PO SCH (21:26)
[2017-10-26] MEDS: MIRTAZAPINE 15 MG TABLET PO SCH (21:27)
[2017-10-27] VITALS (29 sets, daily range): BP systolic 103–159; BP diastolic 46–119
[2017-10-27] MEDS: methylPREDNISolone SOD SUCC 125 MG/2ML VIAL IV SCH ×5 (00:06→23:08)
[2017-10-27] MEDS: LORAZEPAM INJ 2 MG/ML VIAL IVP PRN (01:30)
[2017-10-27] MEDS: NYSTATIN/TRIAMCIN CREAM 15 GM TUBE TP SCH ×2 (01:33→13:34)
[2017-10-27] MEDS: ALBUTEROL FS 2.5 MG/0.5 ML VIAL.NEB NEB SCH ×4 (02:06→19:55)
[2017-10-27] MEDS: IPRATROPIUM NEB FS 0.5 MG/2.5 ML AMPUL.NEB NEB SCH ×4 (02:06→19:55)
[2017-10-27 03:22] LABS: ABG BASE EXCESS 7.7 mmol/L; ABG OXYGEN SATURATION 94.2 % (92.0-98.5); ABG PCO2 45.7 mmHg (35.0-45.0); ABG PH 7.468 (7.350-7.450); ABG PO2 69.8 mmHg (75.0-100.0); AaDO2 75.9 mmHg; COHb 0.3 % (0.5-1.5); MetHb 0.4 % (0.0-1.5); O2Hb 93.5 % (94.0-97.0); SITE, ABG Right Radial; VENT MODE, BG 2L N/C
[2017-10-27 05:20] LABS: HEMATOCRIT 35 % (33-45); HEMOGLOBIN 11.4 g/dL (11.5-14.8); LYMPHOCYTES # (AUTO) 0.3 /CMM (0.8-4.8); LYMPHOCYTES % (AUTO) 2.5 % (20.0-44.0); MEAN CORPUSCULAR HEMOGLOBIN 27 PG (26.0-33.0); MEAN CORPUSCULAR HGB CONC 33 g/dl (31.0-36.0); MEAN CORPUSCULAR VOLUME 83 fL (82-100); MONOCYTES # (AUTO) 0.2 /CMM (0.1-1.30); MONOCYTES % (AUTO) 1.3 % (2.0-12.0); NEUTROPHILS % (AUTO) 96.2 % (43.0-81.0); PLATELET COUNT (AUTO) 51 /CMM (150-450); RDW COEFFICIENT OF VARIATION 17.1 (11.5-15.0); WHITE BLOOD COUNT (AUTO) 13.6 K/uL (4.3-11.0)
[2017-10-27 05:26] LABS: ALANINE AMINOTRANSFERASE 266 U/L (12-78); ALBUMIN 1.6 g/dL (3.4-5.0); ALKALINE PHOSPHATASE 217 U/L (46-116); ASPARTATE AMINOTRANSFERASE 266 U/L (15-37); BILIRUBIN,TOTAL 0.3 mg/dL (0.2-1.0); CALCIUM, SERUM 8.9 mg/dL (8.5-10.1); CARBON DIOXIDE 29 mmol/L (21-32); CHLORIDE 97 mmol/L (98-107); CREATININE 1.6 mg/dL (0.6-1.3); GLUCOSE 318 mg/dL (74-106); POTASSIUM 4.1 mmol/L (3.5-5.1); SODIUM SERUM 136 mmol/L (136-145); TOTAL PROTEIN, SERUM 7.1 g/dL (6.4-8.2); UREA NITROGEN, BLOOD 43 mg/dL (7-18)
[2017-10-27 05:35] LABS: CREATINE KINASE MB 6.1 ng/mL (0-3.6)
[2017-10-27 05:37] LABS: TROPONIN I 1.712 ng/mL (0.00-0.056)
[2017-10-27 05:51] LABS: BAND % (MANUAL) 3 % (0.0-5.0); LYMPHOCYTES % (MANUAL) 3 % (16-48); MONOCYTES % (MANUAL) 3 % (0-11.0); NEUTROPHILS % (MANUAL) 91 (42-76)
[2017-10-27 05:57] LABS: INR 1.03 (0.87-1.13)
[2017-10-27] MEDS: IV NS 0.9% 250 ML IV PRN (06:00)
[2017-10-27] MEDS: ASPIRIN EC 325 MG TABLET.DR PO SCH (08:42)
[2017-10-27] MEDS: BOOST PLUS FOOD-VANILLA 237 ML BOX PO SCH ×2 (08:42→16:10)
[2017-10-27] MEDS: FLUOXETINE HCL 20 MG CAPSULE PO SCH (08:43)
[2017-10-27] MEDS: GABAPENTIN 300 MG CAPSULE PO SCH ×2 (08:43→16:10)
[2017-10-27] MEDS: VALSARTAN 40 MG TABLET PO SCH (08:45)
[2017-10-27] MEDS: FUROSEMIDE 40 MG/4 ML VIAL IV SCH ×3 (09:04→16:10)
[2017-10-27 11:05] LABS: ABG BASE EXCESS 6.9 mmol/L; ABG OXYGEN SATURATION 95.5 % (92.0-98.5); ABG PH 7.486 (7.350-7.450); ABG PO2 78.3 mmHg (75.0-100.0); AaDO2 42.8 mmHg; COHb 0.3 % (0.5-1.5); MetHb 0.4 % (0.0-1.5); O2Hb 94.8 % (94.0-97.0); SITE, ABG Right Femoral; VENT MODE, BG NC 2L
[2017-10-27] MEDS: VANCOMYCIN 0.75 GM in IV D5W 250 ML IV SCH (13:02)
[2017-10-27] MEDS: ATORVASTATIN 10 MG TABLET PO SCH (21:21)
[2017-10-27] MEDS: MIRTAZAPINE 15 MG TABLET PO SCH (21:21)
[2017-10-27] MEDS: ACETAMINOPHEN 325 MG TABLET PO PRN (22:38)
[2017-10-28] VITALS (22 sets, daily range): BP systolic 94–149; BP diastolic 37–75
[2017-10-28] MEDS: ALBUTEROL FS 2.5 MG/0.5 ML VIAL.NEB NEB SCH ×4 (02:05→19:38)
[2017-10-28] MEDS: IPRATROPIUM NEB FS 0.5 MG/2.5 ML AMPUL.NEB NEB SCH ×4 (02:05→19:38)
[2017-10-28] MEDS: NYSTATIN/TRIAMCIN CREAM 15 GM TUBE TP SCH ×2 (02:34→15:37)
[2017-10-28 05:40] LABS: BASOPHILS % (AUTO) 0.2 % (0.0-2.0); HEMATOCRIT 33 % (33-45); LYMPHOCYTES # (AUTO) 0.3 /CMM (0.8-4.8); LYMPHOCYTES % (AUTO) 2.7 % (20.0-44.0); MEAN CORPUSCULAR HEMOGLOBIN 27 PG (26.0-33.0); MEAN CORPUSCULAR HGB CONC 33 g/dl (31.0-36.0); MEAN CORPUSCULAR VOLUME 83 fL (82-100); MONOCYTES # (AUTO) 0.3 /CMM (0.1-1.30); NEUTROPHILS # (AUTO) 11.9 /CMM (1.8-8.9); NEUTROPHILS % (AUTO) 95.1 % (43.0-81.0); RDW COEFFICIENT OF VARIATION 16.6 (11.5-15.0); RED BLOOD CELL COUNT(AUTO) 4.01 MIL/uL (4.0-5.2); WHITE BLOOD COUNT (AUTO) 12.5 K/uL (4.3-11.0)
[2017-10-28 05:45] LABS: PLATELET COUNT (AUTO) 32 /CMM (150-450)
[2017-10-28 06:08] LABS: ALANINE AMINOTRANSFERASE 398 U/L (12-78); ALBUMIN 1.7 g/dL (3.4-5.0); ALKALINE PHOSPHATASE 199 U/L (46-116); ASPARTATE AMINOTRANSFERASE 295 U/L (15-37); BILIRUBIN,TOTAL 0.3 mg/dL (0.2-1.0); CALCIUM, SERUM 8.9 mg/dL (8.5-10.1); CARBON DIOXIDE 32 mmol/L (21-32); CHLORIDE 98 mmol/L (98-107); CREATININE 1.8 mg/dL (0.6-1.3); POTASSIUM 3.1 mmol/L (3.5-5.1); SODIUM SERUM 138 mmol/L (136-145); TOTAL PROTEIN, SERUM 6.8 g/dL (6.4-8.2); UREA NITROGEN, BLOOD 52 mg/dL (7-18)
[2017-10-28 06:11] LABS: GLUCOSE 443 mg/dL (74-106)
[2017-10-28 06:12] LABS: TROPONIN I 1.391 ng/mL (0.00-0.056)
[2017-10-28 06:18] LABS: MAGNESIUM 2.4 mg/dL (1.8-2.4); PHOSPHORUS 3.3 mg/dL (2.5-4.9)
[2017-10-28 06:20] LABS: BAND % (MANUAL) 2 % (0.0-5.0); LYMPHOCYTES % (MANUAL) 3 % (16-48); MONOCYTES % (MANUAL) 6 % (0-11.0); NEUTROPHILS % (MANUAL) 89 (42-76)
[2017-10-28] MEDS: methylPREDNISolone SOD SUCC 125 MG/2ML VIAL IV SCH (06:22)
[2017-10-28] MEDS ORDERED: INSULIN REGULAR, HUMAN 100 UNIT/ML 3 ML VIAL SQ PRN (06:30)
[2017-10-28] MEDS ORDERED: *INSULIN REGULAR(HUMULIN R)HUM 100 UNIT/ML VIAL SQ PRN (06:30)
[2017-10-28] MEDS ORDERED: DEXTROSE 50%-WATER 50 ML DISP.SYRIN IV PRN ×2 (06:30→12:00)
[2017-10-28] MEDS: BOOST PLUS FOOD-VANILLA 237 ML BOX PO SCH ×2 (08:00→16:50)
[2017-10-28] MEDS: VANCOMYCIN 0.75 GM in IV D5W 250 ML IV SCH (08:00)
[2017-10-28 08:25] LABS: IRON, SERUM 41 ug/dl (50-175); TOTAL IRON BINDING CAPACITY 163 ug/dl (250-450)
[2017-10-28 08:33] LABS: FERRITIN 945 ng/mL (8-388)
[2017-10-28] MEDS: BLOOD SUGAR DIAGNOSTIC 1 EACH STRIP VI SCH ×2 (08:52→11:16)
[2017-10-28] MEDS: VALSARTAN 40 MG TABLET PO SCH (09:17)
[2017-10-28] MEDS: ASPIRIN EC 325 MG TABLET.DR PO SCH (09:17)
[2017-10-28] MEDS: GABAPENTIN 300 MG CAPSULE PO SCH ×2 (09:17→16:50)
[2017-10-28] MEDS: POTASSIUM CHLORIDE 20 MEQ TAB.PRT.SR PO SCH ×3 (09:17→12:34)
[2017-10-28] MEDS: FLUOXETINE HCL 20 MG CAPSULE PO SCH (09:18)
[2017-10-28] MEDS: ACETAMINOPHEN 325 MG TABLET PO PRN ×2 (10:09→17:04)
[2017-10-28] MEDS: LEVOFLOXACIN 750 MG /D5W 150ML 750 MG in PREMIX 1 EA IV SCH (10:11)
[2017-10-28] MEDS: BLOOD SUGAR DIAGNOSTIC 1 EACH STRIP IN SCH ×3 (11:33→22:00)
[2017-10-28] MEDS: INSULIN REGULAR, HUMAN 100 UNIT/ML 3 ML VIAL SQ PRN ×2 (11:35→16:52)
[2017-10-28] MEDS: GUAIFENESIN LA 600 MG TABLET.SA PO SCH (16:50)
[2017-10-28] MEDS: methylPREDNISolone SOD SUCC 40 MG/ML VIAL IV SCH (17:04)
[2017-10-28] MEDS ORDERED: PANTOPRAZOLE 40 MG VIAL ONE (21:40)
[2017-10-28] MEDS: PANTOPRAZOLE 80 MG in IV NS 0.9% 500 ML IV PRN (21:59)
[2017-10-28] MEDS: ATORVASTATIN 10 MG TABLET PO SCH (22:00)
[2017-10-28] MEDS: MIRTAZAPINE 15 MG TABLET PO SCH (22:00)
[2017-10-29] VITALS: BP_SYST 128; BP_DIAS 128; BP_DIAS 80
[2017-10-29] MEDS: NYSTATIN/TRIAMCIN CREAM 15 GM TUBE TP SCH ×2 (02:10→14:25)
[2017-10-29 04:00] VITALS: BP 133/81
[2017-10-29] MEDS: methylPREDNISolone SOD SUCC 40 MG/ML VIAL IV SCH ×2 (06:21→18:46)
[2017-10-29] MEDS: BLOOD SUGAR DIAGNOSTIC 1 EACH STRIP IN SCH ×4 (06:31→21:46)
[2017-10-29] MEDS: INSULIN REGULAR, HUMAN 100 UNIT/ML 3 ML VIAL SQ PRN ×3 (06:31→17:42)
[2017-10-29] MEDS: BOOST PLUS FOOD-VANILLA 237 ML BOX PO SCH (08:00)
[2017-10-29 08:30] VITALS: BP 134/75
[2017-10-29] MEDS: GABAPENTIN 300 MG CAPSULE PO SCH ×2 (09:00→17:35)
[2017-10-29] MEDS: GUAIFENESIN LA 600 MG TABLET.SA PO SCH ×2 (09:00→17:35)
[2017-10-29] MEDS: FLUOXETINE HCL 20 MG CAPSULE PO SCH (09:00)
[2017-10-29 09:29] LABS: HEMATOCRIT 32 % (33-45); HEMOGLOBIN 10.4 g/dL (11.5-14.8); LYMPHOCYTES # (AUTO) 0.6 /CMM (0.8-4.8); LYMPHOCYTES % (AUTO) 3.6 % (20.0-44.0); MEAN CORPUSCULAR HEMOGLOBIN 27 PG (26.0-33.0); MEAN CORPUSCULAR HGB CONC 32 g/dl (31.0-36.0); MEAN CORPUSCULAR VOLUME 84 fL (82-100); MONOCYTES # (AUTO) 0.3 /CMM (0.1-1.30); MONOCYTES % (AUTO) 1.6 % (2.0-12.0); NEUTROPHILS # (AUTO) 16.5 /CMM (1.8-8.9); NEUTROPHILS % (AUTO) 94.8 % (43.0-81.0); RDW COEFFICIENT OF VARIATION 16.7 (11.5-15.0); RED BLOOD CELL COUNT(AUTO) 3.86 MIL/uL (4.0-5.2); WHITE BLOOD COUNT (AUTO) 17.4 K/uL (4.3-11.0)
[2017-10-29 10:12] LABS: TROPONIN I 0.372 ng/mL (0.00-0.056)
[2017-10-29 10:42] LABS: ALANINE AMINOTRANSFERASE 411 U/L (12-78); ALBUMIN 1.8 g/dL (3.4-5.0); ALKALINE PHOSPHATASE 171 U/L (46-116); ASPARTATE AMINOTRANSFERASE 204 U/L (15-37); BILIRUBIN,TOTAL 0.3 mg/dL (0.2-1.0); CARBON DIOXIDE 31 mmol/L (21-32); CHLORIDE 106 mmol/L (98-107); CREATININE 1.6 mg/dL (0.6-1.3); GLUCOSE 274 mg/dL (74-106); MAGNESIUM 2.5 mg/dL (1.8-2.4); PHOSPHORUS 3.1 mg/dL (2.5-4.9); POTASSIUM 4.6 mmol/L (3.5-5.1); SODIUM SERUM 145 mmol/L (136-145); TOTAL PROTEIN, SERUM 6.4 g/dL (6.4-8.2); UREA NITROGEN, BLOOD 72 mg/dL (7-18)
[2017-10-29] MEDS: PANTOPRAZOLE 80 MG in IV NS 0.9% 500 ML IV PRN (11:10)
[2017-10-29 13:08] LABS: LYMPHOCYTES % (MANUAL) 3 % (16-48); NEUTROPHILS % (MANUAL) 95 (42-76); PLATELET COUNT (AUTO) 23 /CMM (150-450)
[2017-10-29 13:09] LABS: MONOCYTES % (MANUAL) 2 % (0-11.0)
[2017-10-29] MEDS: IPRATROPIUM NEB FS 0.5 MG/2.5 ML AMPUL.NEB NEB SCH ×2 (13:27→19:36)
[2017-10-29] MEDS: ALBUTEROL FS 2.5 MG/0.5 ML VIAL.NEB NEB SCH ×2 (13:27→19:36)
[2017-10-29] MEDS: VANCOMYCIN 0.75 GM in IV D5W 250 ML IV SCH (13:50)
[2017-10-29] MEDS: Z GUARD REMEDY 2 OZ OINT TP PRN (14:26)
[2017-10-29 16:00] VITALS: BP 120/77
[2017-10-29] MEDS: BOOST FOOD- BERRY 237 ML BOX PO SCH (18:46)
[2017-10-29 20:34] VITALS: BP 141/78
[2017-10-29] MEDS: PANTOPRAZOLE 40 MG TABLET.DR PO SCH (21:44)
[2017-10-29] MEDS: MIRTAZAPINE 15 MG TABLET PO SCH (21:44)
[2017-10-29] MEDS: *INSULIN REGULAR(HUMULIN R)HUM 100 UNIT/ML VIAL SQ PRN (21:51)
[2017-10-30 00:40] VITALS: BP 135/61
[2017-10-30] MEDS: ALBUTEROL FS 2.5 MG/0.5 ML VIAL.NEB NEB SCH ×4 (01:30→19:39)
[2017-10-30] MEDS: IPRATROPIUM NEB FS 0.5 MG/2.5 ML AMPUL.NEB NEB SCH ×4 (01:30→19:39)
[2017-10-30] MEDS: NYSTATIN/TRIAMCIN CREAM 15 GM TUBE TP SCH ×2 (02:18→14:30)
[2017-10-30] MEDS: methylPREDNISolone SOD SUCC 40 MG/ML VIAL IV SCH (06:06)
[2017-10-30] MEDS: BLOOD SUGAR DIAGNOSTIC 1 EACH STRIP IN SCH ×4 (06:43→21:53)
[2017-10-30 06:44] LABS: BASOPHILS # (AUTO) 0.1 /CMM (0.0-0.2); BASOPHILS % (AUTO) 0.3 % (0.0-2.0); HEMATOCRIT 29 % (33-45); HEMOGLOBIN 9.5 g/dL (11.5-14.8); LYMPHOCYTES # (AUTO) 0.8 /CMM (0.8-4.8); LYMPHOCYTES % (AUTO) 4.3 % (20.0-44.0); MEAN CORPUSCULAR HEMOGLOBIN 28 PG (26.0-33.0); MEAN CORPUSCULAR HGB CONC 33 g/dl (31.0-36.0); MEAN CORPUSCULAR VOLUME 83 fL (82-100); MONOCYTES # (AUTO) 0.2 /CMM (0.1-1.30); MONOCYTES % (AUTO) 1.3 % (2.0-12.0); NEUTROPHILS # (AUTO) 17.3 /CMM (1.8-8.9); NEUTROPHILS % (AUTO) 94.1 % (43.0-81.0); RDW COEFFICIENT OF VARIATION 17.7 (11.5-15.0); RED BLOOD CELL COUNT(AUTO) 3.46 MIL/uL (4.0-5.2); WHITE BLOOD COUNT (AUTO) 18.4 K/uL (4.3-11.0)
[2017-10-30 07:04] LABS: PLATELET COUNT (AUTO) 24 /CMM (150-450)
[2017-10-30 07:13] LABS: INR 0.96 (0.87-1.13)
[2017-10-30 07:14] LABS: D-DIMER 2.35 mg/L(FEU (0.17-0.50)
[2017-10-30 08:00] VITALS: BP 138/78
[2017-10-30 08:35] LABS: ALANINE AMINOTRANSFERASE 283 U/L (12-78); ALBUMIN 1.8 g/dL (3.4-5.0); ALKALINE PHOSPHATASE 145 U/L (46-116); ASPARTATE AMINOTRANSFERASE 69 U/L (15-37); BILIRUBIN,TOTAL 0.3 mg/dL (0.2-1.0); CALCIUM, SERUM 8.7 mg/dL (8.5-10.1); CARBON DIOXIDE 32 mmol/L (21-32); CHLORIDE 110 mmol/L (98-107); CREATININE 1.3 mg/dL (0.6-1.3); GLUCOSE 120 mg/dL (74-106); MAGNESIUM 2.5 mg/dL (1.8-2.4); PHOSPHORUS 3.2 mg/dL (2.5-4.9); POTASSIUM 4.3 mmol/L (3.5-5.1); SODIUM SERUM 148 mmol/L (136-145); TOTAL PROTEIN, SERUM 6.2 g/dL (6.4-8.2); TROPONIN I 0.199 ng/mL (0.00-0.056); UREA NITROGEN, BLOOD 62 mg/dL (7-18)
[2017-10-30] MEDS: GABAPENTIN 300 MG CAPSULE PO SCH ×2 (08:36→18:40)
[2017-10-30] MEDS: GUAIFENESIN LA 600 MG TABLET.SA PO SCH ×2 (08:36→18:40)
[2017-10-30] MEDS: FLUOXETINE HCL 20 MG CAPSULE PO SCH (08:36)
[2017-10-30] MEDS: PANTOPRAZOLE 40 MG TABLET.DR PO SCH ×2 (08:36→21:30)
[2017-10-30] MEDS: BOOST FOOD- BERRY 237 ML BOX PO SCH ×2 (08:37→17:00)
[2017-10-30 09:18] LABS: THYROID STIMULATING HORMONE 0.194 uIU/mL (0.358-3.74)
[2017-10-30 09:35] LABS: BAND % (MANUAL) 2 % (0.0-5.0); LYMPHOCYTES % (MANUAL) 2 % (16-48); MONOCYTES % (MANUAL) 8 % (0-11.0); NEUTROPHILS % (MANUAL) 88 (42-76)
[2017-10-30] MEDS: LEVOFLOXACIN 750 MG /D5W 150ML 750 MG in PREMIX 1 EA IV SCH (11:58)
[2017-10-30] MEDS: INSULIN REGULAR, HUMAN 100 UNIT/ML 3 ML VIAL SQ PRN ×3 (12:11→21:59)
[2017-10-30 16:00] VITALS: BP 138/78
[2017-10-30] MEDS ORDERED: ALBUTEROL FS 2.5 MG/0.5 ML VIAL.NEB NEB PRN (17:00)
[2017-10-30] MEDS ORDERED: IPRATROPIUM NEB FS 0.5 MG/2.5 ML AMPUL.NEB NEB PRN (17:00)
[2017-10-30 20:00] VITALS: BP_SYST 145; BP_SYST 153; BP_DIAS 80; BP_DIAS 90
[2017-10-30] MEDS: ACETAMINOPHEN 325 MG TABLET PO PRN (21:30)
[2017-10-30] MEDS: MIRTAZAPINE 15 MG TABLET PO SCH (21:53)
[2017-10-31] MEDS: ALBUTEROL FS 2.5 MG/0.5 ML VIAL.NEB NEB SCH ×4 (01:43→19:40)
[2017-10-31] MEDS: IPRATROPIUM NEB FS 0.5 MG/2.5 ML AMPUL.NEB NEB SCH ×4 (01:43→19:40)
[2017-10-31] MEDS: NYSTATIN/TRIAMCIN CREAM 15 GM TUBE TP SCH ×2 (02:30→16:21)
[2017-10-31] MEDS: BLOOD SUGAR DIAGNOSTIC 1 EACH STRIP IN SCH ×4 (05:57→21:26)
[2017-10-31 08:00] VITALS: BP 124/76
[2017-10-31] MEDS: GABAPENTIN 300 MG CAPSULE PO SCH ×2 (08:43→16:34)
[2017-10-31] MEDS: PANTOPRAZOLE 40 MG TABLET.DR PO SCH ×2 (08:43→21:25)
[2017-10-31] MEDS: GUAIFENESIN LA 600 MG TABLET.SA PO SCH ×2 (08:43→16:34)
[2017-10-31] MEDS: FLUOXETINE HCL 20 MG CAPSULE PO SCH (08:43)
[2017-10-31] MEDS: BOOST FOOD- BERRY 237 ML BOX PO SCH ×2 (08:44→16:30)
[2017-10-31] MEDS ORDERED: methylPREDNISolone SOD SUCC 40 MG/ML VIAL IV SCH (09:00)
[2017-10-31 10:29] LABS: ABG BASE EXCESS 4.2 mmol/L; ABG OXYGEN SATURATION 96.7 % (92.0-98.5); ABG PCO2 40.2 mmHg (35.0-45.0); ABG PH 7.465 (7.350-7.450); ABG PO2 92.9 mmHg (75.0-100.0); AaDO2 59.3 mmHg; COHb 0.3 % (0.5-1.5); MetHb 0.4 % (0.0-1.5); SITE, ABG Left Radial; VENT MODE, BG N/C @28%
[2017-10-31] MEDS ORDERED: FUROSEMIDE 20 MG/2 ML VIAL IV ONE (10:30)
[2017-10-31 11:15] VITALS: BP 135/85
[2017-10-31 11:49] LABS: EOSINOPHILS % (AUTO) 0.2 % (0.0-6.0); HEMATOCRIT 29 % (33-45); HEMOGLOBIN 9.3 g/dL (11.5-14.8); LYMPHOCYTES # (AUTO) 0.8 /CMM (0.8-4.8); LYMPHOCYTES % (AUTO) 3.8 % (20.0-44.0); MEAN CORPUSCULAR HEMOGLOBIN 27 PG (26.0-33.0); MEAN CORPUSCULAR HGB CONC 32 g/dl (31.0-36.0); MEAN CORPUSCULAR VOLUME 84 fL (82-100); MONOCYTES # (AUTO) 0.1 /CMM (0.1-1.30); MONOCYTES % (AUTO) 0.4 % (2.0-12.0); NEUTROPHILS # (AUTO) 19.2 /CMM (1.8-8.9); NEUTROPHILS % (AUTO) 95.6 % (43.0-81.0); RDW COEFFICIENT OF VARIATION 17.3 (11.5-15.0); RED BLOOD CELL COUNT(AUTO) 3.46 MIL/uL (4.0-5.2); WHITE BLOOD COUNT (AUTO) 20.1 K/uL (4.3-11.0)
[2017-10-31 11:51] LABS: CALCIUM, SERUM 8.5 mg/dL (8.5-10.1); CARBON DIOXIDE 29 mmol/L (21-32); CHLORIDE 104 mmol/L (98-107); CREATININE 1.6 mg/dL (0.6-1.3); GLUCOSE 245 mg/dL (74-106); PLATELET COUNT (AUTO) 5 /CMM (150-450); POTASSIUM 4.5 mmol/L (3.5-5.1); SODIUM SERUM 141 mmol/L (136-145); UREA NITROGEN, BLOOD 53 mg/dL (7-18)
[2017-10-31 11:56] LABS: BAND % (MANUAL) 1 % (0.0-5.0); LYMPHOCYTES % (MANUAL) 3 % (16-48); MONOCYTES % (MANUAL) 3 % (0-11.0); NEUTROPHILS % (MANUAL) 93 (42-76)
[2017-10-31] MEDS ORDERED: PIPERACILLIN /TAZOBACTAM 3.375 G in IV D5W 50 ML IV SCH (12:00)
[2017-10-31] MEDS: MEROPENEM 500 MG in IV NS 0.9% 50 ML IV SCH ×2 (12:23→21:25)
[2017-10-31] MEDS: methylPREDNISolone SOD SUCC 40 MG/ML VIAL IV SCH ×2 (12:24→21:25)
[2017-10-31] MEDS: FAMOTIDINE/PF INJ 20 MG/2 ML VIAL IV SCH (12:26)
[2017-10-31] MEDS: VANCOMYCIN 0.75 GM in IV D5W 250 ML IV SCH (14:21)
[2017-10-31 15:11] LABS: *SPE A/G RATIO 0.5 (0.7-1.7); *SPE ALBUMIN 1.9 g/dL (2.9-4.4); *SPE ALPHA-1-GLOBULIN 0.4 g/dL (0.0-0.4); *SPE ALPHA-2-GLOBULIN 1.3 g/dL (0.4-1.0); *SPE BETA GLOBULIN 0.7 g/dL (0.7-1.3); *SPE GLOBULIN, TOTAL 3.5 g/dL (2.2-3.9); *SPE M-SPIKE Not Observed g/dL (Not Observed); *SPEGAMMA GLOBULIN 1.1 g/dL (0.4-1.8)
[2017-10-31 16:00] VITALS: BP 140/64
[2017-10-31] MEDS: INSULIN REGULAR, HUMAN 100 UNIT/ML 3 ML VIAL SQ PRN (17:11)
[2017-10-31 20:00] VITALS: BP 120/82
[2017-10-31] MEDS ORDERED: FAMOTIDINE/PF INJ 20 MG/2 ML VIAL IV SCH (21:00)
[2017-10-31] MEDS: MIRTAZAPINE 15 MG TABLET PO SCH (21:26)
[2017-10-31] MEDS: *INSULIN REGULAR(HUMULIN R)HUM 100 UNIT/ML VIAL SQ PRN (21:50)
[2017-10-31] MEDS ORDERED: IV NS 0.9% 1,000 ML IV STA (22:36)
[2017-10-31 22:48] LABS: ABG BASE EXCESS -6.3 mmol/L; ABG OXYGEN SATURATION 98.4 % (92.0-98.5); ABG PCO2 33.8 mmHg (35.0-45.0); ABG PH 7.355 (7.350-7.450); ABG PO2 511.3 mmHg (75.0-100.0); AaDO2 156.8 mmHg; COHb 0.1 % (0.5-1.5); MetHb 0.8 % (0.0-1.5); O2Hb 97.5 % (94.0-97.0); SITE, ABG Right Radial; VENT MODE, BG 100% NRB
[2017-10-31] MEDS: ACETYLCYSTEINE 10% SOLN 400 MG/4 ML VIAL NEB SCH (23:30)
[2017-11-01] VITALS (12 sets, daily range): BP systolic 117–148; BP diastolic 63–93
[2017-11-01] MEDS: ALBUTEROL FS 2.5 MG/0.5 ML VIAL.NEB NEB SCH ×4 (01:53→19:36)
[2017-11-01] MEDS: IPRATROPIUM NEB FS 0.5 MG/2.5 ML AMPUL.NEB NEB SCH ×4 (01:53→19:37)
[2017-11-01] MEDS: NYSTATIN/TRIAMCIN CREAM 15 GM TUBE TP SCH ×2 (04:06→14:41)
[2017-11-01] MEDS: methylPREDNISolone SOD SUCC 40 MG/ML VIAL IV SCH ×3 (04:10→22:04)
[2017-11-01] MEDS: ACETYLCYSTEINE 10% SOLN 400 MG/4 ML VIAL NEB SCH ×2 (07:51→15:20)
[2017-11-01 07:55] LABS: EOSINOPHILS # (AUTO) 0.2 /CMM (0.0-0.7); HEMATOCRIT 26 % (33-45); HEMOGLOBIN 8.6 g/dL (11.5-14.8); LYMPHOCYTES # (AUTO) 0.7 /CMM (0.8-4.8); LYMPHOCYTES % (AUTO) 3.6 % (20.0-44.0); MEAN CORPUSCULAR HEMOGLOBIN 27 PG (26.0-33.0); MEAN CORPUSCULAR HGB CONC 33 g/dl (31.0-36.0); MEAN CORPUSCULAR VOLUME 83 fL (82-100); MONOCYTES # (AUTO) 0.2 /CMM (0.1-1.30); MONOCYTES % (AUTO) 1.1 % (2.0-12.0); NEUTROPHILS # (AUTO) 18.8 /CMM (1.8-8.9); NEUTROPHILS % (AUTO) 94.3 % (43.0-81.0); RDW COEFFICIENT OF VARIATION 16.9 (11.5-15.0); RED BLOOD CELL COUNT(AUTO) 3.14 MIL/uL (4.0-5.2)
[2017-11-01] MEDS: BOOST FOOD- BERRY 237 ML BOX PO SCH ×2 (08:00→16:02)
[2017-11-01 08:08] LABS: PLATELET COUNT (AUTO) 8 /CMM (150-450)
[2017-11-01 08:11] LABS: CALCIUM, SERUM 8.4 mg/dL (8.5-10.1); CARBON DIOXIDE 33 mmol/L (21-32); CHLORIDE 105 mmol/L (98-107); CREATININE 1.3 mg/dL (0.6-1.3); GLUCOSE 265 mg/dL (74-106); MAGNESIUM 2.2 mg/dL (1.8-2.4); POTASSIUM 3.7 mmol/L (3.5-5.1); SODIUM SERUM 144 mmol/L (136-145); UREA NITROGEN, BLOOD 39 mg/dL (7-18)
[2017-11-01] MEDS: MEROPENEM 500 MG in IV NS 0.9% 50 ML IV SCH ×2 (08:20→22:04)
[2017-11-01] MEDS: GABAPENTIN 300 MG CAPSULE PO SCH ×2 (08:21→16:02)
[2017-11-01] MEDS: GUAIFENESIN LA 600 MG TABLET.SA PO SCH ×2 (08:21→16:02)
[2017-11-01] MEDS: PANTOPRAZOLE 40 MG TABLET.DR PO SCH ×2 (08:21→22:04)
[2017-11-01] MEDS: FLUOXETINE HCL 20 MG CAPSULE PO SCH (08:21)
[2017-11-01] MEDS: FAMOTIDINE/PF INJ 20 MG/2 ML VIAL IV SCH (08:21)
[2017-11-01] MEDS: BLOOD SUGAR DIAGNOSTIC 1 EACH STRIP IN SCH ×4 (08:28→22:20)
[2017-11-01 09:10] LABS: D-DIMER 3.33 mg/L(FEU (0.17-0.50)
[2017-11-01] MEDS: INSULIN REGULAR, HUMAN 100 UNIT/ML 3 ML VIAL SQ PRN ×3 (09:24→17:28)
[2017-11-01 09:30] LABS: BAND % (MANUAL) 3 % (0.0-5.0); LYMPHOCYTES % (MANUAL) 2 % (16-48); MONOCYTES % (MANUAL) 3 % (0-11.0); NEUTROPHILS % (MANUAL) 92 (42-76)
[2017-11-01] MEDS: LEVOFLOXACIN 750 MG /D5W 150ML 750 MG in PREMIX 1 EA IV SCH (11:18)
[2017-11-01] MEDS: Z GUARD REMEDY 2 OZ OINT TP SCH (14:41)
[2017-11-01] MEDS: MIRTAZAPINE 15 MG TABLET PO SCH (22:04)
[2017-11-01] MEDS: *INSULIN REGULAR(HUMULIN R)HUM 100 UNIT/ML VIAL SQ PRN (22:21)
[2017-11-02] VITALS: BP 132/58
[2017-11-02] MEDS: IPRATROPIUM NEB FS 0.5 MG/2.5 ML AMPUL.NEB NEB SCH ×3 (00:34→14:00)
[2017-11-02] MEDS: ACETYLCYSTEINE 10% SOLN 400 MG/4 ML VIAL NEB SCH ×3 (00:34→14:00)
[2017-11-02] MEDS: ALBUTEROL FS 2.5 MG/0.5 ML VIAL.NEB NEB SCH ×3 (00:34→14:00)
[2017-11-02] MEDS: NYSTATIN/TRIAMCIN CREAM 15 GM TUBE TP SCH ×2 (02:50→17:15)
[2017-11-02 04:00] VITALS: BP 145/71
[2017-11-02] MEDS: methylPREDNISolone SOD SUCC 40 MG/ML VIAL IV SCH ×2 (05:11→12:21)
[2017-11-02 06:50] LABS: BASOPHILS # (AUTO) 0.2 /CMM (0.0-0.2); BASOPHILS % (AUTO) 1.1 % (0.0-2.0); EOSINOPHILS % (AUTO) 0.1 % (0.0-6.0); HEMATOCRIT 26 % (33-45); HEMOGLOBIN 8.2 g/dL (11.5-14.8); LYMPHOCYTES # (AUTO) 0.5 /CMM (0.8-4.8); LYMPHOCYTES % (AUTO) 2.5 % (20.0-44.0); MEAN CORPUSCULAR HEMOGLOBIN 27 PG (26.0-33.0); MEAN CORPUSCULAR HGB CONC 32 g/dl (31.0-36.0); MEAN CORPUSCULAR VOLUME 84 fL (82-100); MONOCYTES # (AUTO) 0.6 /CMM (0.1-1.30); MONOCYTES % (AUTO) 2.8 % (2.0-12.0); NEUTROPHILS # (AUTO) 19.4 /CMM (1.8-8.9); NEUTROPHILS % (AUTO) 93.5 % (43.0-81.0); RDW COEFFICIENT OF VARIATION 17.4 (11.5-15.0); RED BLOOD CELL COUNT(AUTO) 3.07 MIL/uL (4.0-5.2); WHITE BLOOD COUNT (AUTO) 20.8 K/uL (4.3-11.0)
[2017-11-02 07:04] LABS: PLATELET COUNT (AUTO) 25 /CMM (150-450)
[2017-11-02 08:00] VITALS: BP 149/76
[2017-11-02] MEDS: MEROPENEM 500 MG in IV NS 0.9% 50 ML IV SCH (08:15)
[2017-11-02] MEDS: BLOOD SUGAR DIAGNOSTIC 1 EACH STRIP IN SCH ×3 (08:15→17:14)
[2017-11-02] MEDS: FLUOXETINE HCL 20 MG CAPSULE PO SCH (08:17)
[2017-11-02] MEDS: PANTOPRAZOLE 40 MG TABLET.DR PO SCH (08:18)
[2017-11-02] MEDS: GABAPENTIN 300 MG CAPSULE PO SCH ×2 (08:18→17:14)
[2017-11-02] MEDS: GUAIFENESIN LA 600 MG TABLET.SA PO SCH ×2 (08:18→17:14)
[2017-11-02] MEDS: FAMOTIDINE/PF INJ 20 MG/2 ML VIAL IV SCH (08:19)
[2017-11-02 08:21] LABS: CARBON DIOXIDE 34 mmol/L (21-32); CHLORIDE 106 mmol/L (98-107); GLUCOSE 266 mg/dL (74-106); POTASSIUM 3.8 mmol/L (3.5-5.1); SODIUM SERUM 145 mmol/L (136-145); UREA NITROGEN, BLOOD 36 mg/dL (7-18)
[2017-11-02] MEDS: INSULIN REGULAR, HUMAN 100 UNIT/ML 3 ML VIAL SQ PRN ×3 (08:24→17:23)
[2017-11-02] MEDS: Z GUARD REMEDY 2 OZ OINT TP SCH (08:30)
[2017-11-02 09:42] LABS: D-DIMER 3.8 mg/L(FEU (0.17-0.50); INR 0.96 (0.87-1.13)
[2017-11-02 10:53] LABS: BAND % (MANUAL) 7 % (0.0-5.0); MONOCYTES % (MANUAL) 5 % (0-11.0); NEUTROPHILS % (MANUAL) 88 (42-76)
[2017-11-02] MEDS: BOOST FOOD- BERRY 237 ML BOX PO SCH ×2 (12:29→17:16)
[2017-11-02] MEDS ORDERED: VANCOMYCIN 0.75 GM in IV D5W 250 ML IV SCH (13:30)
[2017-11-02 15:47] LABS: CALCIUM, SERUM 9.1 mg/dL (8.5-10.1)
[2017-11-02 16:00] VITALS: BP 146/73
[2017-11-02 16:02] LABS: BILIRUBIN,TOTAL 0.3 mg/dL (0.2-1.0)
[2017-11-02] MEDS ORDERED: methylPREDNISolone SOD SUCC 40 MG/ML VIAL IV SCH ×2 (21:00)
== END 2017-11-02 19:20 | DRG 871 ==
LOC: ER 22:29 → ICU 10-26 00:56 → TELE 10-28 18:00 → MED 10-30 20:39 → TELE-TD 10-31 11:07 → TELE1 11-01 11:05 → MEDSG1 11-02 10:17
PROVIDERS: ADMIT Internal Medicine; ATTEND Internal Medicine
PROC: 5A09357 Assistance with Respiratory Ventilation, Less than 24 Consecutive Hours, Continuous Positive Airway Pressure (ICD-10-PCS; 2017-10-25)
PROC: 05H533Z Insertion of Infusion Device into Right Subclavian Vein, Percutaneous Approach (ICD-10-PCS; principal; 2017-10-26)
PROC: 05H533Z Insertion of Infusion Device into Right Subclavian Vein, Percutaneous Approach (ICD-10-PCS; 2017-10-31)
PROC: 30233R1 Transfusion of Nonautologous Platelets into Peripheral Vein, Percutaneous Approach (ICD-10-PCS; 2017-11-01)
DX: A41.9 Sepsis, unspecified organism (principal); J96.01 Acute respiratory failure with hypoxia; I21.A1 Myocardial infarction type 2; J69.0 Pneumonitis due to inhalation of food and vomit; E43 Unspecified severe protein-calorie malnutrition; J15.6 Pneumonia due to other Gram-negative bacteria; D61.818 Other pancytopenia; J84.9 Interstitial pulmonary disease, unspecified; G93.41 Metabolic encephalopathy; N17.0 Acute kidney failure with tubular necrosis; R65.21 Severe sepsis with septic shock; K72.00 Acute and subacute hepatic failure without coma; I50.31 Acute diastolic (congestive) heart failure; E87.2 Acidosis; J44.0 Chronic obstructive pulmonary disease with (acute) lower respiratory infection; J44.1 Chronic obstructive pulmonary disease with (acute) exacerbation; N39.0 Urinary tract infection, site not specified; I13.0 Hypertensive heart and chronic kidney disease with heart failure and stage 1 through stage 4 chronic kidney disease, or unspecified chronic kidney disease; D69.6 Thrombocytopenia, unspecified; E11.22 Type 2 diabetes mellitus with diabetic chronic kidney disease; D63.8 Anemia in other chronic diseases classified elsewhere; E88.09 Other disorders of plasma-protein metabolism, not elsewhere classified; E78.5 Hyperlipidemia, unspecified; E86.0 Dehydration; F17.210 Nicotine dependence, cigarettes, uncomplicated; K76.0 Fatty (change of) liver, not elsewhere classified; Z86.73 Personal history of transient ischemic attack (TIA), and cerebral infarction without residual deficits; N18.9 Chronic kidney disease, unspecified; Z88.0 Allergy status to penicillin; Z88.2 Allergy status to sulfonamides; Z90.710 Acquired absence of both cervix and uterus; M19.90 Unspecified osteoarthritis, unspecified site; M81.0 Age-related osteoporosis without current pathological fracture; L30.4 Erythema intertrigo; G62.9 Polyneuropathy, unspecified; F32.9 Major depressive disorder, single episode, unspecified; Z68.20 Body mass index [BMI] 20.0-20.9, adult; R53.1 Weakness; D75.82 Heparin induced thrombocytopenia (HIT); L89.621 Pressure ulcer of left heel, stage 1; L89.611 Pressure ulcer of right heel, stage 1; R23.0 Cyanosis; I73.9 Peripheral vascular disease, unspecified; E87.6 Hypokalemia; E11.65 Type 2 diabetes mellitus with hyperglycemia; L98.8 Other specified disorders of the skin and subcutaneous tissue; E11.51 Type 2 diabetes mellitus with diabetic peripheral angiopathy without gangrene; F03.90 Unspecified dementia, unspecified severity, without behavioral disturbance, psychotic disturbance, mood disturbance, and anxiety; Z79.899 Other long term (current) drug therapy; T38.0X5A Adverse effect of glucocorticoids and synthetic analogues, initial encounter; Y92.89 Other specified places as the place of occurrence of the external cause; T50.2X5A Adverse effect of carbonic-anhydrase inhibitors, benzothiadiazides and other diuretics, initial encounter
CPT/HCPCS: 31720; 36415; 36600; 71045-TC; 76700-TC; 80048-TC; 80053-TC; 80076-TC; 80202-TC; 81000-TC; 82247-TC; 82248-TC; 82553-TC; 82728-TC; 82746; 82803-TC; 82962-TC; 83010; 83540-TC; 83605-TC; 83615-TC; 83735-TC; 83880; 84100-TC; 84134-TC; 84155; 84165; 84439-TC; 84443-TC; 84484-TC; 85025-TC; 85045-TC; 85385-TC; 85396; 85610-TC; 85730-TC; 86022; 86850-TC; 86880-TC; 87040-TC; 87081-TC; 87086-TC; 92526; 92611-TC; 93307-TC; 93970-TC; 94799-TC; 99082-TC; A4216; A4606; A6410; C1769; C9113; J0744; J1815; J1940; J1956; J2060; J2185; J2370; J2405; J2543; J2920; J2930; J3370; J3490; J7030; J7040; J7050; J7060; J7120; P9016-BL; P9034-BL; Z7610